=== PATIENT | male | born 1990 | race Caucasian/White ===

== ENCOUNTER 2017-01-26 11:29 | Inpatient (IN) | payer MEDICAID ==
[~2017-01-26] VITALS: Ht 165.1 cm; Wt 118.4 kg
[~2017-01-26 11:29] MED LIST: ADV100/50 INH; ALD25 PO; ALDACTONE25 MG PO; AMOXICILLIN500 MG PO; ASPIR 8181 MG PO; CARVEDILOL12.5 M1 PO; CARVEDILOL3.125 M1; CARVEDILOL3.125 M1 PO; CARVEDILOL6.25 M1 PO; CLINDAMYCIN HC300 MG PO; COR3 PO; ECO81 PO; FER300 PO; FERROUS SULFAT325 M2 PO; FUROSEMIDE40 MG PO; L40I PO; LAC PO; LASIX40 MG PO; LASIX80 MG PO; LEVOTHYROXIN0.025 M2 PO; LIPI20 PO; LISINOPRIL10 MG PO; LISINOPRIL5 MG PO; METOLAZONE2.5 M1 PO; METOPROLOL SUCC25 M1 PO; NORCO1 TA2 PO; PANTOPRAZOLE SO40 M1 PO; PER5 PO; PROVENTIL0.09 MG/A1 INH; ROBAXIN-750750 MG PO; SPIRONOLACTONE; SPIRONOLACTONE25 MG PO; SYN25 PO; SYNTHROID0.05 MG PO; TOP50 PO; Z5 PO; ZES10 PO; ZIT250 PO; ZITHROMAX Z-PA250 M2 PO
[2017-01-26 12:22] LABS: BASOPHIL % 0.3 % (0-2); PLATELET COUNT 278 x10^3mcL (130-400)
[2017-01-26 12:26] LABS: CARBON DIOXIDE 31.6 mmol/L (21-32); CHLORIDE SERUM 102 mmol/L (98-107); CREATININE SERUM 1.1 mg/dL (0.7-1.3); GFR1 > 60 mL/min; GLUCOSE SERUM 97 mg/dL (74-106); POTASSIUM SERUM 3.6 mmol/L (3.5-5.1); SODIUM SERUM 141 mmol/L (136-145)
[2017-01-26 12:31] LABS: ALBUMIN 3.6 g/dL (3.4-5.0); ALKALINE PHOSPHATASE 99 U/L (46-116); ALT/SGPT 23 U/L (16-63); AST/SGOT 22 U/L (15-37); BILIRUBIN TOTAL 1.97 mg/dL (0.20-1.00); RED CELL DISTRIBUTION WIDTH 23.1 % (11.5-14.5); TOTAL PROTEIN, SERUM 6.6 g/dL (6.4-8.2)
[2017-01-26 14:54] VITALS: BP 129/80
[2017-01-26 15:02] VITALS: Ht 165.1 cm; Wt 118.4 kg
[2017-01-26 15:27] VITALS: BP 125/92
[2017-01-26 16:49] LABS: CHOLESTEROL/HDL RATIO 3.1
[2017-01-26 16:54] LABS: FREE T4 1.65 ng/dL (0.76-1.46); T4(THYROXINE) 7.5 ug/dL (4.7-13.3)
[2017-01-26 16:59] LABS: T3 TOTAL 1.06 ng/mL
[2017-01-26 17:55] VITALS: BP 133/93
[2017-01-26 18:32] VITALS: BP 133/93
[2017-01-26 21:54] VITALS: BP 111/79
[2017-01-26 22:19] LABS: microscopic required? NO
[2017-01-26 22:26] LABS: urine erythrocyte NEGATIVE (NEGATIVE)
[2017-01-26 22:34] LABS: AMPHETAMINE QUAL UR NONE DETECTED (NEG <=1000)
[2017-01-27] VITALS (14 sets, daily range): BP systolic 100–127; BP diastolic 61–87
[2017-01-27 06:45] LABS: CALCIUM 8.2 mg/dL (8.5-10.1); CARBON DIOXIDE 25.1 mmol/L (21-32); CHLORIDE SERUM 102 mmol/L (98-107); CREATININE SERUM 1.2 mg/dL (0.7-1.3); GFR1 > 60 mL/min; GLUCOSE SERUM 97 mg/dL (74-106); PHOSPHOROUS 4.9 mg/dL (2.5-4.9); POTASSIUM SERUM 3.4 mmol/L (3.5-5.1); SODIUM SERUM 138 mmol/L (136-145)
[2017-01-27 07:26] LABS: BASOPHIL % 0.4 % (0-2); PLATELET COUNT 253 x10^3mcL (130-400); RED CELL DISTRIBUTION WIDTH 23.5 % (11.5-14.5)
[2017-01-27 16:57] LABS: APPEARANCE FLUID HAZY; SOURCE FLUID THORACENTESIS
[2017-01-27 16:58] LABS: COLOR FLUID YELLOW; LYMPHOCYTE FLUID 60 %; MONOCYTE FLUID 5 %; RBC FLUID 500 /cumm; WBC FLUID 25 /cumm
[2017-01-28 05:40] VITALS: BP 115/72
[2017-01-28 06:06] LABS: BASOPHIL % 0.4 % (0-2); PLATELET COUNT 247 x10^3mcL (130-400)
[2017-01-28 06:18] LABS: CALCIUM 8.3 mg/dL (8.5-10.1); CARBON DIOXIDE 28.2 mmol/L (21-32); CHLORIDE SERUM 101 mmol/L (98-107); CREATININE SERUM 1.1 mg/dL (0.7-1.3); GFR1 > 60 mL/min; GLUCOSE SERUM 81 mg/dL (74-106); MAGNESIUM 1.9 mg/dL (1.8-2.4); PHOSPHOROUS 4.5 mg/dL (2.5-4.9); SODIUM SERUM 136 mmol/L (136-145)
[2017-01-28 06:28] LABS: RED CELL DISTRIBUTION WIDTH 23.7 % (11.5-14.5); rbc morphology (normal/abnorm) ABNORMAL (NORMAL)
[2017-01-28 09:38] VITALS: BP 105/78
[2017-01-28 12:28] VITALS: BP 100/49
[2017-01-28 17:55] VITALS: BP 111/71
[2017-01-28 21:57] VITALS: BP 112/72
[2017-01-29] VITALS (11 sets, daily range): BP systolic 101–122; BP diastolic 55–79
[2017-01-29 07:14] LABS: PLATELET COUNT 262 x10^3mcL (130-400)
[2017-01-29 07:17] LABS: RED CELL DISTRIBUTION WIDTH 21.4 % (11.5-14.5)
[2017-01-29 07:18] LABS: CALCIUM 8.1 mg/dL (8.5-10.1); CHLORIDE SERUM 102 mmol/L (98-107); CREATININE SERUM 1.1 mg/dL (0.7-1.3); GFR1 > 60 mL/min; GLUCOSE SERUM 92 mg/dL (74-106); PHOSPHOROUS 5.1 mg/dL (2.5-4.9); POTASSIUM SERUM 4.1 mmol/L (3.5-5.1); SODIUM SERUM 135 mmol/L (136-145)
[2017-01-29] MEDS ORDERED: PER5 PO (14:19)
[2017-01-29] MEDS ORDERED: COL100 PO (14:21)
[2017-01-30 06:27] VITALS: BP 95/58
[2017-01-30 09:18] VITALS: BP 109/73
[2017-01-30] MEDS ORDERED: ALD50 PO (09:20)
[2017-01-30] MEDS ORDERED: ALDACTONE50 MG PO (09:22)
[2017-01-30 13:32] VITALS: BP 109/73
== END 2017-01-30 15:19 | disposition home or self-care (01) | DRG 194 ==
LOC: ED 11:29 → DU 13:50 → MU 13:50 → DU 14:40 → MU 01-30 06:02
PROVIDERS: Emergency Medicine; Family Medicine; ADMIT Family Medicine
PROC: 0W993ZZ Drainage of Right Pleural Cavity, Percutaneous Approach (ICD-10-PCS; principal; 2017-01-27)
PROC: 0W9930Z Drainage of Right Pleural Cavity with Drainage Device, Percutaneous Approach (ICD-10-PCS; 2017-01-29)
DX: I11.0 Hypertensive heart disease with heart failure (principal); N17.0 Acute kidney failure with tubular necrosis; J96.20 Acute and chronic respiratory failure, unspecified whether with hypoxia or hypercapnia; J18.9 Pneumonia, unspecified organism; J91.8 Pleural effusion in other conditions classified elsewhere; I50.43 Acute on chronic combined systolic (congestive) and diastolic (congestive) heart failure; T43.621S Poisoning by amphetamines, accidental (unintentional), sequela; I25.5 Ischemic cardiomyopathy; R73.03 Prediabetes; E87.6 Hypokalemia; J45.909 Unspecified asthma, uncomplicated; E03.9 Hypothyroidism, unspecified; F15.21 Other stimulant dependence, in remission; E66.01 Morbid (severe) obesity due to excess calories; Z68.42 Body mass index [BMI] 45.0-49.9, adult; Z79.82 Long term (current) use of aspirin; Z95.810 Presence of automatic (implantable) cardiac defibrillator
CPT/HCPCS: 32555; 80307; 83880; 84439; C1729; G0480; J0696; J1885; J1940; J2270; J2405; J7030; J7620; Q0092; Q0162; Q9967

== ENCOUNTER 2017-03-29 14:40 | Inpatient (IN) | payer MEDICAID ==
[~2017-03-29] VITALS: Ht 165.1 cm; Wt 110.4 kg
[~2017-03-29 14:40] MED LIST changes: +ALD50 PO; +ALDACTONE50 MG PO; +COL100 PO
[2017-03-29 17:19] LABS: BASOPHIL % 0.6 % (0-2); PLATELET COUNT 239 x10^3mcL (130-400)
[2017-03-29 17:20] LABS: RED CELL DISTRIBUTION WIDTH 19.8 % (11.5-14.5)
[2017-03-29 17:26] LABS: CALCIUM 8.7 mg/dL (8.5-10.1); CARBON DIOXIDE 26.7 mmol/L (21-32); CHLORIDE SERUM 102 mmol/L (98-107); CREATININE SERUM 1.1 mg/dL (0.7-1.3); GFR1 > 60 mL/min; GLUCOSE SERUM 103 mg/dL (74-106); POTASSIUM SERUM 3.6 mmol/L (3.5-5.1); SODIUM SERUM 137 mmol/L (136-145)
[2017-03-29 17:33] LABS: ALBUMIN 3.5 g/dL (3.4-5.0); ALKALINE PHOSPHATASE 85 U/L (46-116); ALT/SGPT 17 U/L (16-63); AST/SGOT 17 U/L (15-37); BILIRUBIN TOTAL 1.94 mg/dL (0.20-1.00); MAGNESIUM 1.9 mg/dL (1.8-2.4); TOTAL PROTEIN, SERUM 6.4 g/dL (6.4-8.2)
[2017-03-29] MEDS ORDERED: ATIVAN (17:55)
[2017-03-29] MEDS ORDERED: ZOFRAN ODT4 MG SL (17:55)
[2017-03-29 19:06] VITALS: BP 113/85
[2017-03-29 19:23] LABS: CHOLESTEROL/HDL RATIO 3.9; PHOSPHOROUS 3.4 mg/dL (2.5-4.9)
[2017-03-29 19:30] LABS: T3 TOTAL 0.63 ng/mL
[2017-03-29 19:33] LABS: FREE T4 1.32 ng/dL (0.76-1.46); FREE THYROXINE INDEX 2.4 ug/dL (1.4-4.5); T4(THYROXINE) 6.4 ug/dL (4.7-13.3)
[2017-03-29 21:36] VITALS: BP 129/82
[2017-03-29 23:42] VITALS: BP 12/82
[2017-03-30 00:15] LABS: microscopic required? NO
[2017-03-30 00:20] LABS: urine erythrocyte NEGATIVE (NEGATIVE)
[2017-03-30 00:25] LABS: AMPHETAMINE QUAL UR NONE DETECTED (NEG <=1000)
[2017-03-30 05:08] VITALS: BP 119/92
[2017-03-30 05:35] VITALS: BP 119/92
[2017-03-30 10:09] VITALS: BP 124/87
[2017-03-30 12:48] VITALS: BP 128/90
[2017-03-30 16:25] LABS: SOURCE FLUID THORACENTESIS
[2017-03-30 17:19] VITALS: BP 92/53
[2017-03-30 20:55] VITALS: BP 90/56
[2017-03-31 05:52] VITALS: BP 87/43
[2017-03-31 06:41] VITALS: BP 105/67
[2017-03-31 08:15] VITALS: BP 103/65
[2017-03-31 14:05] VITALS: BP 99/49
[2017-03-31 18:00] VITALS: BP 96/57
[2017-04-01 06:32] VITALS: BP 100/65
[2017-04-01 07:10] LABS: BASOPHIL % 0.9 % (0-2); PLATELET COUNT 243 x10^3mcL (130-400)
[2017-04-01 07:15] LABS: RED CELL DISTRIBUTION WIDTH 20.3 % (11.5-14.5); rbc morphology (normal/abnorm) ABNORMAL (NORMAL)
[2017-04-01 07:19] LABS: CALCIUM 8.5 mg/dL (8.5-10.1); CHLORIDE SERUM 98 mmol/L (98-107); CREATININE SERUM 1.1 mg/dL (0.7-1.3); GFR1 > 60 mL/min; GLUCOSE SERUM 90 mg/dL (74-106); MAGNESIUM 1.9 mg/dL (1.8-2.4); PHOSPHOROUS 3.7 mg/dL (2.5-4.9); POTASSIUM SERUM 4.5 mmol/L (3.5-5.1); SODIUM SERUM 133 mmol/L (136-145)
[2017-04-01 07:40] VITALS: BP 110/64
[2017-04-01] MEDS ORDERED: VITC PO (09:30)
[2017-04-01 13:49] VITALS: BP 110/64
[2017-04-01 14:16] VITALS: BP 108/56
== END 2017-04-01 14:30 | disposition hospice, home (50) | DRG 194 ==
LOC: ED 14:40 → DU 17:44
PROVIDERS: Emergency Medicine; Family Medicine; ADMIT Family Medicine
PROC: 0W993ZZ Drainage of Right Pleural Cavity, Percutaneous Approach (ICD-10-PCS; principal; 2017-03-30)
DX: I11.0 Hypertensive heart disease with heart failure (principal); J90 Pleural effusion, not elsewhere classified; I42.0 Dilated cardiomyopathy; E87.1 Hypo-osmolality and hyponatremia; I27.2 Other secondary pulmonary hypertension; F15.288 Other stimulant dependence with other stimulant-induced disorder; I50.43 Acute on chronic combined systolic (congestive) and diastolic (congestive) heart failure; Z68.41 Body mass index [BMI] 40.0-44.9, adult; I08.1 Rheumatic disorders of both mitral and tricuspid valves; R73.03 Prediabetes; E78.5 Hyperlipidemia, unspecified; E03.9 Hypothyroidism, unspecified; D50.9 Iron deficiency anemia, unspecified; F12.10 Cannabis abuse, uncomplicated; Z79.82 Long term (current) use of aspirin; Z99.81 Dependence on supplemental oxygen; Z95.810 Presence of automatic (implantable) cardiac defibrillator; Z22.322 Carrier or suspected carrier of Methicillin resistant Staphylococcus aureus
CPT/HCPCS: 32555; 83880; 84439; C1729; J1885; J1940; J2001; J2270; J2405; J7030; J7613; J7620; J7644; Q0092

== ENCOUNTER 2017-04-05 21:13 | Inpatient (IN) | payer MEDICAID ==
[~2017-04-05] VITALS: Ht 165.1 cm; Wt 113.9 kg
[~2017-04-05 21:13] MED LIST changes: +ATIVAN; +VITC PO; +ZOFRAN ODT4 MG SL
[2017-04-05 22:09] LABS: BASOPHIL % 1.1 % (0-2); PLATELET COUNT 338 x10^3mcL (130-400)
[2017-04-05 22:11] LABS: RED CELL DISTRIBUTION WIDTH 20.6 % (11.5-14.5)
[2017-04-05 22:18] LABS: CALCIUM 9.2 mg/dL (8.5-10.1); CARBON DIOXIDE 25.3 mmol/L (21-32); CREATININE SERUM 1.7 mg/dL (0.7-1.3)
[2017-04-05 22:23] LABS: ALBUMIN 3.7 g/dL (3.4-5.0); BILIRUBIN TOTAL 4.7 mg/dL (0.20-1.00); TOTAL PROTEIN, SERUM 6.7 g/dL (6.4-8.2)
[2017-04-06 00:59] VITALS: BP 114/77
[2017-04-06 02:17] LABS: MAGNESIUM 2.1 mg/dL (1.8-2.4); PHOSPHOROUS 4.3 mg/dL (2.5-4.9)
[2017-04-06 02:20] LABS: T3 TOTAL 0.6 ng/mL
[2017-04-06 02:27] LABS: FREE T4 1.37 ng/dL (0.76-1.46); FREE THYROXINE INDEX 2.1 ug/dL (1.4-4.5)
[2017-04-06 05:11] LABS: PLATELET COUNT 287 x10^3mcL (130-400); RED CELL DISTRIBUTION WIDTH 21.1 % (11.5-14.5)
[2017-04-06 05:21] LABS: CALCIUM 8.8 mg/dL (8.5-10.1); CARBON DIOXIDE 24.4 mmol/L (21-32); CREATININE SERUM 1.6 mg/dL (0.7-1.3); POTASSIUM SERUM 4.2 mmol/L (3.5-5.1)
[2017-04-06 05:26] LABS: rbc morphology (normal/abnorm) ABNORMAL (NORMAL)
[2017-04-06 05:27] LABS: ovalocyte/elliptocyte 1+
[2017-04-06 09:03] LABS: microscopic required? NO
[2017-04-06 09:24] LABS: UA SPECIFIC GRAVITY 1.025 (1.005-1.035); urine erythrocyte NEGATIVE (NEGATIVE)
[2017-04-06 09:49] LABS: AMPHETAMINE QUAL UR POSITIVE (NEG <=1000)
[2017-04-06 10:31] VITALS: BP 103/75
[2017-04-06 10:53] VITALS: BP 89/60
[2017-04-06 12:51] VITALS: BP 98/71
[2017-04-06 16:17] LABS: SITE FLUID RIGHT; SOURCE FLUID THORACENTESIS
[2017-04-06 17:09] VITALS: BP 93/45
[2017-04-06 21:19] VITALS: BP 83/53
[2017-04-07] VITALS (7 sets, daily range): BP systolic 91–102; BP diastolic 59–69
[2017-04-08 06:12] VITALS: BP 98/59
[2017-04-08 06:53] LABS: BASOPHIL % 0.5 % (0-2); PLATELET COUNT 343 x10^3mcL (130-400)
[2017-04-08 06:54] LABS: RED CELL DISTRIBUTION WIDTH 21.5 % (11.5-14.5)
[2017-04-08 07:22] LABS: CALCIUM 8.6 mg/dL (8.5-10.1); CARBON DIOXIDE 28.6 mmol/L (21-32); CHLORIDE SERUM 92 mmol/L (98-107); CREATININE SERUM 1.5 mg/dL (0.7-1.3); GFR1 > 60 mL/min; GLUCOSE SERUM 87 mg/dL (74-106); POTASSIUM SERUM 4.8 mmol/L (3.5-5.1); SODIUM SERUM 129 mmol/L (136-145)
[2017-04-08 09:48] VITALS: BP 103/64
[2017-04-08 14:50] VITALS: BP 100/64
[2017-04-08 17:27] VITALS: BP 102/69
[2017-04-08 20:57] VITALS: BP 104/64
[2017-04-09 05:22] VITALS: BP 99/65
[2017-04-09 06:06] LABS: BASOPHIL % 0.5 % (0-2); PLATELET COUNT 326 x10^3mcL (130-400)
[2017-04-09 06:18] LABS: CALCIUM 8.3 mg/dL (8.5-10.1); CARBON DIOXIDE 25.4 mmol/L (21-32); CHLORIDE SERUM 93 mmol/L (98-107); CREATININE SERUM 1.3 mg/dL (0.7-1.3); GFR1 > 60 mL/min; GLUCOSE SERUM 96 mg/dL (74-106); POTASSIUM SERUM 4.7 mmol/L (3.5-5.1); SODIUM SERUM 127 mmol/L (136-145)
[2017-04-09 06:39] LABS: RED CELL DISTRIBUTION WIDTH 21.6 % (11.5-14.5)
[2017-04-09 08:34] LABS: tear drop cell (dacryocyte) 1+
[2017-04-09 08:35] LABS: burr cell (echinocyte) 1+; rbc morphology (normal/abnorm) ABNORMAL (NORMAL)
[2017-04-09 10:35] VITALS: BP 90/51
[2017-04-09 13:52] VITALS: BP 93/59
[2017-04-09] MEDS ORDERED: LAC PO (17:32)
[2017-04-09] MEDS ORDERED: LEVAQUIN750 MG PO (17:32)
[2017-04-09] MEDS ORDERED: CLINDAMYCIN HC300 MG PO (17:33)
[2017-04-09 17:48] VITALS: BP 93/59
== END 2017-04-09 19:35 | disposition hospice, home (50) | DRG 720 ==
LOC: ED 21:13 → DU 04-06 08:30 → ED 04-06 09:10 → DU 04-06 10:07
PROVIDERS: Emergency Medicine; ADMIT Family Medicine
PROC: 0W993ZZ Drainage of Right Pleural Cavity, Percutaneous Approach (ICD-10-PCS; principal; 2017-04-07)
PROC: 0W9930Z Drainage of Right Pleural Cavity with Drainage Device, Percutaneous Approach (ICD-10-PCS; 2017-04-08)
DX: A41.9 Sepsis, unspecified organism (principal); I50.43 Acute on chronic combined systolic (congestive) and diastolic (congestive) heart failure; J91.8 Pleural effusion in other conditions classified elsewhere; J18.9 Pneumonia, unspecified organism; I42.0 Dilated cardiomyopathy; I11.0 Hypertensive heart disease with heart failure; Z68.41 Body mass index [BMI] 40.0-44.9, adult; Z99.81 Dependence on supplemental oxygen; R65.20 Severe sepsis without septic shock; I36.1 Nonrheumatic tricuspid (valve) insufficiency; I34.0 Nonrheumatic mitral (valve) insufficiency; R73.03 Prediabetes; E78.5 Hyperlipidemia, unspecified; E03.9 Hypothyroidism, unspecified; D50.9 Iron deficiency anemia, unspecified; F12.10 Cannabis abuse, uncomplicated; F15.10 Other stimulant abuse, uncomplicated; Z95.810 Presence of automatic (implantable) cardiac defibrillator; Z79.82 Long term (current) use of aspirin
CPT/HCPCS: 32405; 32555; 83880; 84439; 88344; 97116-GP; 97530-GP; C1729; J1885; J1940; J1956; J2001; J2250; J2270; J2405; J2543; J3010; J7050; J7620; Q0092

== ENCOUNTER 2017-04-16 13:47 | Emergency (ER) | payer MEDICAID ==
[~2017-04-16 13:47] MED LIST changes: +LEVAQUIN750 MG PO
[2017-04-16 14:58] LABS: CALCIUM 8.7 mg/dL (8.5-10.1); CARBON DIOXIDE 26.9 mmol/L (21-32); CHLORIDE SERUM 97 mmol/L (98-107); CREATININE SERUM 0.9 mg/dL (0.7-1.3); GFR1 > 60 mL/min; GLUCOSE SERUM 95 mg/dL (74-106); PLATELET COUNT 410 x10^3mcL (130-400); POTASSIUM SERUM 3.7 mmol/L (3.5-5.1); RED CELL DISTRIBUTION WIDTH 22.2 % (11.5-14.5); SODIUM SERUM 134 mmol/L (136-145)
[2017-04-16 15:03] LABS: ALKALINE PHOSPHATASE 144 U/L (46-116); ALT/SGPT 24 U/L (16-63); AST/SGOT 22 U/L (15-37); BILIRUBIN TOTAL 2.22 mg/dL (0.20-1.00); TOTAL PROTEIN, SERUM 6.2 g/dL (6.4-8.2)
[2017-04-16 15:04] LABS: ALBUMIN 2.8 g/dL (3.4-5.0)
[2017-04-16 15:07] LABS: microscopic required? NO
[2017-04-16 15:35] LABS: UA SPECIFIC GRAVITY 1.025 (1.005-1.035); urine erythrocyte NEGATIVE (NEGATIVE)
[2017-04-16 16:26] VITALS: BP 97/57
== END 2017-04-16 16:26 | disposition home or self-care (01) ==
LOC: ED 13:47
PROVIDERS: Emergency Medicine
DX: R10.11 Right upper quadrant pain (principal); R11.2 Nausea with vomiting, unspecified; R19.7 Diarrhea, unspecified; I10 Essential (primary) hypertension; E03.9 Hypothyroidism, unspecified; E78.5 Hyperlipidemia, unspecified; I42.9 Cardiomyopathy, unspecified
CPT/HCPCS: 83880; J1885; J2765; Q0092

== ENCOUNTER 2017-04-26 15:59 | Emergency (ER) | payer MEDICAID ==
[~2017-04-26] VITALS: Ht 167.6 cm; Wt 107.6 kg
[2017-04-26 17:02] LABS: BASOPHIL % 1.6 % (0-2); PLATELET COUNT 312 x10^3mcL (130-400)
[2017-04-26 17:18] LABS: RED CELL DISTRIBUTION WIDTH 26.8 % (11.5-14.5)
[2017-04-26 17:22] LABS: CALCIUM 9.1 mg/dL (8.5-10.1); CARBON DIOXIDE 18.5 mmol/L (21-32); CHLORIDE SERUM 101 mmol/L (98-107); CREATININE SERUM 1.4 mg/dL (0.7-1.3); GFR1 > 60 mL/min; GLUCOSE SERUM 115 mg/dL (74-106); POTASSIUM SERUM 4.1 mmol/L (3.5-5.1); SODIUM SERUM 135 mmol/L (136-145)
[2017-04-26 17:26] LABS: rbc morphology (normal/abnorm) ABNORMAL (NORMAL)
[2017-04-26 17:31] LABS: ALKALINE PHOSPHATASE 120 U/L (46-116); ALT/SGPT 14 U/L (16-63); AST/SGOT 16 U/L (15-37); BILIRUBIN TOTAL 1.77 mg/dL (0.20-1.00); T4(THYROXINE) 6.8 ug/dL (4.7-13.3); TOTAL PROTEIN, SERUM 6.3 g/dL (6.4-8.2)
[2017-04-26 17:32] LABS: ALBUMIN 3.1 g/dL (3.4-5.0)
[2017-04-26 19:02] VITALS: BP 107/71
== END 2017-04-26 19:02 | disposition home or self-care (01) ==
LOC: ED 15:59
PROVIDERS: Emergency Medicine
DX: T85.9XXA Unspecified complication of internal prosthetic device, implant and graft, initial encounter (principal); R07.81 Pleurodynia; I42.9 Cardiomyopathy, unspecified; E03.9 Hypothyroidism, unspecified; E78.00 Pure hypercholesterolemia, unspecified; E66.9 Obesity, unspecified; E46 Unspecified protein-calorie malnutrition; I13.0 Hypertensive heart and chronic kidney disease with heart failure and stage 1 through stage 4 chronic kidney disease, or unspecified chronic kidney disease; N18.3 Chronic kidney disease, stage 3 (moderate); I50.40 Unspecified combined systolic (congestive) and diastolic (congestive) heart failure; Y92.89 Other specified places as the place of occurrence of the external cause; Z98.890 Other specified postprocedural states
CPT/HCPCS: 36415; 83880; Q0092

== ENCOUNTER 2017-06-23 21:57 | Inpatient (IN) | payer MEDICAID ==
[~2017-06-23] VITALS: Ht 167.6 cm; Wt 106.7 kg
[2017-06-23 22:56] LABS: BASOPHIL % 0.5 % (0-2); PLATELET COUNT 222 x10^3mcL (130-400)
[2017-06-23 23:02] LABS: RED CELL DISTRIBUTION WIDTH 20.6 % (11.5-14.5)
[2017-06-23 23:03] LABS: CALCIUM 8.9 mg/dL (8.5-10.1); CARBON DIOXIDE 27.8 mmol/L (21-32); CHLORIDE SERUM 100 mmol/L (98-107); CREATININE SERUM 0.9 mg/dL (0.7-1.3); GFR1 > 60 mL/min; GLUCOSE SERUM 101 mg/dL (74-106); POTASSIUM SERUM 3.9 mmol/L (3.5-5.1); SODIUM SERUM 137 mmol/L (136-145)
[2017-06-23 23:25] LABS: ALKALINE PHOSPHATASE 174 U/L (46-116); ALT/SGPT 25 U/L (16-63); AST/SGOT 21 U/L (15-37); BILIRUBIN TOTAL 1.89 mg/dL (0.20-1.00); TOTAL PROTEIN, SERUM 7.1 g/dL (6.4-8.2)
[2017-06-23 23:26] LABS: ALBUMIN 3.1 g/dL (3.4-5.0)
[2017-06-23 23:27] LABS: CK-MB < 0.5 ng/mL (0-3.6); CREATINE KINASE 21 U/L (39-308)
[2017-06-23] MEDS ORDERED: CARVEDILOL6.25 M1 PO (23:56)
[2017-06-24] VITALS (7 sets, daily range): BP systolic 101–114; BP diastolic 58–68
[2017-06-24] MEDS ORDERED: LEVOTHYROXIN0.025 M2 PO (01:35)
[2017-06-24] MEDS ORDERED: ASPIR 8181 MG PO (01:37)
[2017-06-24 02:43] LABS: MAGNESIUM 2.3 mg/dL (1.8-2.4); PHOSPHOROUS 3.3 mg/dL (2.5-4.9)
[2017-06-24 02:46] LABS: CHOLESTEROL/HDL RATIO 2.3
[2017-06-24 02:53] LABS: FREE T4 1.17 ng/dL (0.76-1.46); FREE THYROXINE INDEX 2.6 ug/dL (1.4-4.5); T4(THYROXINE) 6.9 ug/dL (4.7-13.3)
[2017-06-24 03:06] LABS: T3 TOTAL 0.79 ng/mL
[2017-06-24 03:54] LABS: microscopic required? NO
[2017-06-24 04:07] LABS: urine erythrocyte NEGATIVE (NEGATIVE)
[2017-06-24 04:31] LABS: AMPHETAMINE QUAL UR NONE DETECTED (NEG <=1000)
[2017-06-24 06:27] LABS: BASOPHIL % 0.1 % (0-2); PLATELET COUNT 192 x10^3mcL (130-400)
[2017-06-24 06:41] LABS: RED CELL DISTRIBUTION WIDTH 20.4 % (11.5-14.5); rbc morphology (normal/abnorm) ABNORMAL (NORMAL)
[2017-06-24 06:45] LABS: CALCIUM 8.6 mg/dL (8.5-10.1); CARBON DIOXIDE 30.4 mmol/L (21-32); CHLORIDE SERUM 103 mmol/L (98-107); CREATININE SERUM 1.1 mg/dL (0.7-1.3); GFR1 > 60 mL/min; GLUCOSE SERUM 96 mg/dL (74-106); POTASSIUM SERUM 3.8 mmol/L (3.5-5.1); SODIUM SERUM 139 mmol/L (136-145)
[2017-06-25 10:00] VITALS: BP 95/62
[2017-06-25 13:54] VITALS: BP 119/77
[2017-06-25 18:08] VITALS: BP 120/71
[2017-06-25 20:26] VITALS: BP 102/66
[2017-06-26 05:55] VITALS: BP 108/74
[2017-06-26 06:06] LABS: BASOPHIL % 0.3 % (0-2); PLATELET COUNT 236 x10^3mcL (130-400)
[2017-06-26 06:12] LABS: CALCIUM 8.6 mg/dL (8.5-10.1); CHLORIDE SERUM 99 mmol/L (98-107); CREATININE SERUM 1.1 mg/dL (0.7-1.3); GFR1 > 60 mL/min; GLUCOSE SERUM 86 mg/dL (74-106); POTASSIUM SERUM 3.9 mmol/L (3.5-5.1); SODIUM SERUM 129 mmol/L (136-145)
[2017-06-26 06:34] LABS: RED CELL DISTRIBUTION WIDTH 19.8 % (11.5-14.5)
[2017-06-26] MEDS ORDERED: LEVAQUIN750 MG PO (12:17)
[2017-06-26] MEDS ORDERED: LEVOTHYROXIN0.025 M2 PO (12:50)
[2017-06-26 13:00] VITALS: BP 110/64
[2017-06-26 13:44] VITALS: BP 110/64
[2017-06-26] MEDS ORDERED: BACTROBAN21 (14:08)
[2017-06-26] MEDS ORDERED: HIBICLENS118 ML TOP (14:13)
[2017-06-26] MEDS ORDERED: BACO TOP (15:14)
[2017-06-30 14:31] VITALS: Ht 167.6 cm; Wt 106.7 kg
== END 2017-06-26 16:15 | disposition home or self-care (01) | DRG 194 ==
LOC: ED 21:57 → DU 23:35
PROVIDERS: Emergency Medicine; ADMIT Family Medicine
DX: I11.0 Hypertensive heart disease with heart failure (principal); J18.9 Pneumonia, unspecified organism; I50.43 Acute on chronic combined systolic (congestive) and diastolic (congestive) heart failure; E44.1 Mild protein-calorie malnutrition; J45.909 Unspecified asthma, uncomplicated; E03.9 Hypothyroidism, unspecified; E80.6 Other disorders of bilirubin metabolism; E66.9 Obesity, unspecified; Z79.82 Long term (current) use of aspirin; Z68.37 Body mass index [BMI] 37.0-37.9, adult; Z95.810 Presence of automatic (implantable) cardiac defibrillator; I25.10 Atherosclerotic heart disease of native coronary artery without angina pectoris
CPT/HCPCS: 83880; 84439; J1940; J1956; J2270; J7030; J7620; Q0092

== ENCOUNTER 2017-07-27 18:57 | Inpatient (IN) | payer MEDICAID ==
[~2017-07-27] VITALS: Ht 170.2 cm; Wt 110.2 kg
[~2017-07-27 18:57] MED LIST changes: +BACO TOP; +BACTROBAN21; +HIBICLENS118 ML TOP
[2017-07-27 21:08] LABS: BASOPHIL % 0.6 % (0-2); PLATELET COUNT 226 x10^3mcL (130-400)
[2017-07-27 21:10] LABS: RED CELL DISTRIBUTION WIDTH 16.5 % (11.5-14.5)
[2017-07-27 21:15] LABS: CALCIUM 9.3 mg/dL (8.5-10.1); CARBON DIOXIDE 28.2 mmol/L (21-32); CHLORIDE SERUM 103 mmol/L (98-107); GFR1 > 60 mL/min; GLUCOSE SERUM 99 mg/dL (74-106); POTASSIUM SERUM 3.1 mmol/L (3.5-5.1); SODIUM SERUM 141 mmol/L (136-145)
[2017-07-27 21:19] LABS: ALKALINE PHOSPHATASE 104 U/L (46-116); ALT/SGPT 20 U/L (16-63); AMYLASE 27 U/L (25-115); AST/SGOT 20 U/L (15-37); LIPASE 58 IU/L (73-393); TOTAL PROTEIN, SERUM 7.4 g/dL (6.4-8.2)
[2017-07-27] MEDS ORDERED: LIPI20 PO (22:17)
[2017-07-27] MEDS ORDERED: ZESTRIL5 MG PO (22:18)
[2017-07-27] MEDS ORDERED: COUMADIN5 MG PO (22:18)
[2017-07-27] MEDS ORDERED: DIGOXIN0.125 M1 GT (22:18)
[2017-07-27] MEDS ORDERED: ALDACTONE25 MG PO (22:18)
[2017-07-27] MEDS ORDERED: NITROGLYCERIN0.4 MG (22:18)
[2017-07-27] MEDS ORDERED: NOVAPLUS V0.09 MG/Ac INH (22:20)
[2017-07-28] VITALS (8 sets, daily range): BP systolic 87–119; BP diastolic 63–87
[2017-07-28 06:51] LABS: BASOPHIL % 0.4 % (0-2); PLATELET COUNT 212 x10^3mcL (130-400)
[2017-07-28 06:56] LABS: CALCIUM 8.9 mg/dL (8.5-10.1); CARBON DIOXIDE 26.5 mmol/L (21-32); CHLORIDE SERUM 106 mmol/L (98-107); CREATININE SERUM 1.1 mg/dL (0.7-1.3); GFR1 > 60 mL/min; GLUCOSE SERUM 88 mg/dL (74-106); POTASSIUM SERUM 3.8 mmol/L (3.5-5.1); SODIUM SERUM 141 mmol/L (136-145)
[2017-07-29 05:33] VITALS: BP 99/63
[2017-07-29 06:19] LABS: BASOPHIL % 0.5 % (0-2); PLATELET COUNT 200 x10^3mcL (130-400)
[2017-07-29 06:31] LABS: CALCIUM 8.6 mg/dL (8.5-10.1); CARBON DIOXIDE 23.2 mmol/L (21-32); CHLORIDE SERUM 105 mmol/L (98-107); CREATININE SERUM 1.1 mg/dL (0.7-1.3); GFR1 > 60 mL/min; GLUCOSE SERUM 80 mg/dL (74-106); MAGNESIUM 2.1 mg/dL (1.8-2.4); PHOSPHOROUS 4.5 mg/dL (2.5-4.9); POTASSIUM SERUM 4.5 mmol/L (3.5-5.1); SODIUM SERUM 138 mmol/L (136-145)
[2017-07-29 06:52] LABS: RED CELL DISTRIBUTION WIDTH 17.2 % (11.5-14.5)
[2017-07-29 09:30] VITALS: BP 116/82
[2017-07-29 14:11] VITALS: BP 122/71
[2017-07-29 17:15] VITALS: BP 109/68
[2017-07-29 22:08] VITALS: BP 117/77
[2017-07-30 06:00] VITALS: BP 98/71
[2017-07-30 06:00] LABS: BASOPHIL % 0.2 % (0-2); PLATELET COUNT 175 x10^3mcL (130-400)
[2017-07-30 06:23] LABS: CALCIUM 8.2 mg/dL (8.5-10.1); CARBON DIOXIDE 21.3 mmol/L (21-32); CHLORIDE SERUM 104 mmol/L (98-107); GFR1 > 60 mL/min; GLUCOSE SERUM 85 mg/dL (74-106); SODIUM SERUM 136 mmol/L (136-145)
[2017-07-30] MEDS ORDERED: LEVAQUIN750 MG PO (08:11)
[2017-07-30] MEDS ORDERED: LAC PO (08:11)
[2017-07-30] MEDS ORDERED: NORCO1 TA2 PO (09:31)
[2017-07-30 10:50] VITALS: BP 121/86
[2017-07-30 14:55] VITALS: BP 121/86
[2017-07-30 15:10] VITALS: BP 116/60
== END 2017-07-30 17:24 | disposition home or self-care (01) | DRG 139 ==
LOC: ED 18:57 → DU 21:59
PROVIDERS: Emergency Medicine; Family Medicine; ADMIT Family Medicine
DX: J18.9 Pneumonia, unspecified organism (principal); I50.43 Acute on chronic combined systolic (congestive) and diastolic (congestive) heart failure; I42.0 Dilated cardiomyopathy; R18.8 Other ascites; I11.0 Hypertensive heart disease with heart failure; K74.60 Unspecified cirrhosis of liver; R73.03 Prediabetes; E87.6 Hypokalemia; E78.5 Hyperlipidemia, unspecified; S32.000S Wedge compression fracture of unspecified lumbar vertebra, sequela; M54.5 Low back pain; G89.29 Other chronic pain; F12.10 Cannabis abuse, uncomplicated; I25.2 Old myocardial infarction; Z95.810 Presence of automatic (implantable) cardiac defibrillator; Z87.01 Personal history of pneumonia (recurrent); Z79.01 Long term (current) use of anticoagulants; Z79.82 Long term (current) use of aspirin; V89.2XXS Person injured in unspecified motor-vehicle accident, traffic, sequela
CPT/HCPCS: 83880; J1885; J1956; J2270; J2405; J7030; Q0092

== ENCOUNTER 2017-08-31 21:42 | Emergency (ER) | payer MEDICAID ==
[~2017-08-31 21:42] MED LIST changes: +COUMADIN5 MG PO; +DIGOXIN0.125 M1 GT; +NITROGLYCERIN0.4 MG; +NOVAPLUS V0.09 MG/Ac INH; +ZESTRIL5 MG PO
[2017-09-01 01:08] LABS: BASOPHIL % 0.4 % (0-2); PLATELET COUNT 208 x10^3mcL (130-400)
[2017-09-01 01:09] LABS: RED CELL DISTRIBUTION WIDTH 16.9 % (11.5-14.5)
[2017-09-01 01:14] LABS: CALCIUM 8.7 mg/dL (8.5-10.1); CARBON DIOXIDE 28.5 mmol/L (21-32); CHLORIDE SERUM 105 mmol/L (98-107); GFR1 > 60 mL/min; GLUCOSE SERUM 88 mg/dL (74-106); POTASSIUM SERUM 3.2 mmol/L (3.5-5.1); SODIUM SERUM 139 mmol/L (136-145)
[2017-09-01 01:19] LABS: ALBUMIN 3.6 g/dL (3.4-5.0); ALKALINE PHOSPHATASE 109 U/L (46-116); ALT/SGPT 17 U/L (16-63); AST/SGOT 19 U/L (15-37); BILIRUBIN TOTAL 2.29 mg/dL (0.20-1.00); TOTAL PROTEIN, SERUM 6.8 g/dL (6.4-8.2)
[2017-09-01 04:17] VITALS: BP 135/90
== END 2017-09-01 04:17 | disposition home or self-care (01) ==
LOC: ED 21:42
PROVIDERS: Emergency Medicine
DX: I11.0 Hypertensive heart disease with heart failure (principal); I50.9 Heart failure, unspecified; J45.909 Unspecified asthma, uncomplicated
CPT/HCPCS: 36415; Q0092

== ENCOUNTER 2017-09-13 | Inpatient (IN) | payer MEDICAID ==
[~2017-09-13] VITALS: Ht 170.2 cm; Wt 129.2 kg
[2017-09-13] VITALS (7 sets, daily range): BP systolic 95–125; BP diastolic 62–87
--- NOTE | 2017-09-13 01:06 | NUR ---
MSE COMPLETED BY DR MORENO
[2017-09-13 01:20] LABS: BASOPHIL % 0.3 % (0-2); CALCIUM 8.9 mg/dL (8.5-10.1); CARBON DIOXIDE 25.2 mmol/L (21-32); CHLORIDE SERUM 102 mmol/L (98-107); CREATININE SERUM 1.3 mg/dL (0.7-1.3); GFR1 > 60 mL/min; GLUCOSE SERUM 88 mg/dL (74-106); PLATELET COUNT 272 x10^3mcL (130-400); POTASSIUM SERUM 3.3 mmol/L (3.5-5.1); SODIUM SERUM 137 mmol/L (136-145)
[2017-09-13 01:24] LABS: ALBUMIN 3.8 g/dL (3.4-5.0); ALKALINE PHOSPHATASE 95 U/L (46-116); ALT/SGPT 13 U/L (16-63); AST/SGOT 17 U/L (15-37); BILIRUBIN TOTAL 4.35 mg/dL (0.20-1.00); TOTAL PROTEIN, SERUM 6.7 g/dL (6.4-8.2)
[2017-09-13 01:32] LABS: RED CELL DISTRIBUTION WIDTH 16.9 % (11.5-14.5)
--- NOTE | 2017-09-13 01:32 | NUR ---
PATIENT SEEN RESTING. HAS NO YET VOID
--- NOTE | 2017-09-13 03:21 | NUR ---
PATIENT ARRIVED TO UNIT VIA [facility] FROM ED ACCOMPANIED BY ED NURSES. PATIENT A/OX4 ABLE TO VERBALIZE NEEDS. ALL MEDICAL HISTORY OBTAINED FROM PATIENT DIRECTLY. IV SITE TO LAC. NO FLUIDS ORDERED AT THIS TIME. PATIENT VERBALIZED 10/10 PAIN TO BL LEGS. REDNESS AND SWELLING TO BLE UP TO BOTH KNEES. REDNESS ALSO NOTED TO RIGHT SIDE FLANK. CALL LIGHT WITHIN REACH AND WILL CONTACT DR. LOTT REGARDING NEW ORDERS
--- NOTE | 2017-09-13 03:24 | NUR ---
PATIENT HAS NECK VEIN DISTENTION AT REST, DYSPNEA ON EXERTION AND AT REST. REPORT WAS GIVEN TO EVAN AND THE PATIENT WAS TRANSPORTED TO ROOM 201.
[2017-09-13 04:20] LABS: MAGNESIUM 2.2 mg/dL (1.8-2.4); PHOSPHOROUS 3.7 mg/dL (2.5-4.9)
--- NOTE | 2017-09-13 04:25 | NUR ---
PAIN MEDICATION ADMINISTERED FOR PAIN 10/10 TO BL LEGS.
[2017-09-13 04:31] LABS: FREE T4 1.47 ng/dL (0.76-1.46); FREE THYROXINE INDEX 2.5 ug/dL (1.4-4.5); T4(THYROXINE) 6.3 ug/dL (4.7-13.3)
[2017-09-13 04:55] LABS: CHOLESTEROL/HDL RATIO 3.2
--- NOTE | 2017-09-13 06:48 | NUR ---
PATIENT QUIETLY RESTING IN BED AT THIS TIME. NO S/SX OF DISTRESS NOTED. ICE PACKS APPLIED TO BL LEGS. CALL LIGHT WITHIN REACH. PATIENT DENIES ANY SOB OR CHEST PAIN AT THIS TIME.
--- NOTE | 2017-09-13 07:12 | NUR ---
TALKING ON PHONE, NO DISTRESS NOTED. TELE 8. IVF NS @ 10 TO LAC WNL. BLE RED AND MARKED. CALL LIGHT WITHIN REACH.
--- NOTE | 2017-09-13 07:28 | NUR ---
CARE ENDORSED TO SERG
--- NOTE | 2017-09-13 07:28 | NUR ---
INFLUENZA VACCINE GIVEN TO LEFT ARM IM. SEE EMAR. PATIENT TOLERATED WELL.
[2017-09-13 08:00] LABS: microscopic required? YES; urine erythrocyte NEGATIVE (NEGATIVE)
[2017-09-13 08:18] LABS: AMPHETAMINE QUAL UR POSITIVE (NEG <=1000)
--- NOTE | 2017-09-13 08:27 | NUR ---
EATING BREAKFAST. REQUESTED AND RECEIVED PAIN MEDICATION. TELE 8. REDNESS TO BLE AND RIGHT BREAST AROUND TO RIGHT FLANK. CALL LIGHT WITHIN REACH.
--- NOTE | 2017-09-13 08:58 | NUR ---
PHARMACIST FOLLOWING UP WITH RESIDENT CONCERNING ORDER FOR COUMADIN.
--- NOTE | 2017-09-13 10:03 | NUR ---
SPOKE WITH DR NICHOLS AND MADE AWARE PHARMACIST NEEDS TO SPEAK WITH HIM CONCERNING WARFARIN ORDER PLACED DURING INSIDE WIREMAN.
--- NOTE | 2017-09-13 10:24 | NUR ---
CALLED FOR NURSE, NURSE INTO ROOM, IGNORED NURSE WHILE TALKING ON PHONE, WHEN ASKED IF HE NEEDED NURSE, REPORTS HIS LEFT SIDE OF FACE JUST SUDDENLY WENT NUMB, NO DROOP NOTED, WANTED TO CONTINUE PHONE CONVERSATION INSTEAD OF FURTHER NEURO CHECKS. WILL CONTINUE TO MONITOR. DR SANTIAGO MADE AWARE.
--- NOTE | 2017-09-13 12:07 | NUR ---
REPORTS FACIAL NUMBNESS IS GONE.
--- NOTE | 2017-09-13 12:50 | NUR ---
RT GIVING RX. LUNCH DELIVERED.
--- NOTE | 2017-09-13 13:59 | NUR ---
DR BERG IN TO SEE PATIENT. TO BE ON FLUID RESTRICTIONS. INFORMED PATIENT OF FLUID RESTRICTIONS, PATIENT REPORTS HE USUALLY IS ON 1000ML FLUID RESTRICTIONS. HAS BEEN ASKING FOR JUICES AND SODAS THROUGHOUT SHIFT.
--- NOTE | 2017-09-13 15:41 | NUR ---
TALKING ON PHONE. DR NICHOLS IN TO SEE PATIENT. NO DISTRESS NOTED.
[2017-09-13 16:00] LABS: T3 TOTAL 0.77 ng/mL
--- NOTE | 2017-09-13 17:55 | NUR ---
UP TO BATHROOM.
--- NOTE | 2017-09-13 18:45 | NUR ---
MEDICATED WITH DILAUDID 2MG PO FOR 10/10 PAIN. WATCHING TV, NO DISTRESS NOTED.
--- NOTE | 2017-09-13 19:15 | NUR ---
PT A/O X4, SITTING UP AND EATING DINNER AT THIS TIME. TELE #8, ST AT 102, DENIES CHEST PAIN. PACEMAKER. PULSES WEAK TO BLE, PITTING EDEMA NOTED TO BLE. LUNG SOUNDS DIMINSHED TO SANDEE BASES, ON RA, DENIES SOB. ABD SOFT AND NONDISTENDED, BOWEL TONES ACTIVE, DENIES N/V. VOIDS ADEQUATELY VIA URINAL. PT ON STRICT I/Os AND FLUID RESTRICTIONS. GENERALIZED WEAKNESS. REDNESS NOTED TO BLE; REDNESS NOTED TO RIGHT BREAST AND FLANK. PT DENIES PAIN AT THIS TIME. IVF INFUSING TO LAC. BED IN LOWEST, SIDE RAILS UP X2, CALL LIGHT WITHIN REACH. WILL CONTINUE TO MONITOR.
--- NOTE | 2017-09-13 22:16 | NUR ---
PT COMPLAINING OF NAUSEA. ADMINISTERED ZOFRAN ORDERED. NO ACTIVE VOMITING AT THIS TIME. WILL CONTINUE TO MONITOR.
--- NOTE | 2017-09-14 01:30 | NUR ---
PT ASLEEP AT THIS TIME. BREATHING IS EVEN AND UNLABORED, NO RESP DISTRESS NOTED. NO SIGNS OF PAIN OBSERVED. IVF INFUSING WELL. CALL LIGHT WITHIN REACH. WILL CONTINUE TO MONITOR.
[2017-09-14 06:16] VITALS: BP 91/69
[2017-09-14 06:30] LABS: BASOPHIL % 0.4 % (0-2); PLATELET COUNT 253 x10^3mcL (130-400)
[2017-09-14 06:40] LABS: CALCIUM 8.6 mg/dL (8.5-10.1); CARBON DIOXIDE 27.1 mmol/L (21-32); CHLORIDE SERUM 100 mmol/L (98-107); CREATININE SERUM 1.5 mg/dL (0.7-1.3); GFR1 > 60 mL/min; GLUCOSE SERUM 87 mg/dL (74-106); POTASSIUM SERUM 3.7 mmol/L (3.5-5.1); SODIUM SERUM 136 mmol/L (136-145)
--- NOTE | 2017-09-14 06:40 | NUR ---
PT SLEPT WELL THROUGHOUT THE NIGHT, BUT EASILY AROUSABLE. NO RESP DISTRESS NOTED, BREATHING IS EVEN AND UNLABORED. NO SIGNS OF PAIN OBSERVED. IVF INFUSING WELL. ALL NEEDS MET. CALL LIGHT WITHIN REACH. WILL ENDORSE CARE TO AM NURSE.
[2017-09-14 06:44] LABS: RED CELL DISTRIBUTION WIDTH 17.1 % (11.5-14.5)
--- NOTE | 2017-09-14 07:17 | NUR ---
CANCELLATION REQUESTED FOR ECHOCARDIOGRAM
--- NOTE | 2017-09-14 08:00 | NUR ---
SLEEPING, AROUSABLE. ORIENTED X3. CLEAR SPEECH. BREATHING SOUND DIMINISHED SANDEE, O2 SAT 100% ON RA WHEN AWAKE, BUT O2 SAT DROPPED TO 89% ON SLEEPING. O2 2L VIA N/C APPLIED. TELE#8 = SR W/ RBBB; HR = 90. DENIED CHEST PAIN. AICD TO LT UPPER CHEST WALL. EDEMA 3+ TO BLES WITH REDNESS. IVF OF TKO, 10CC/HR PER ORDER. IV SITE TO LAC INTACT. RASHES WITH REDNESS TO RT SIDE OF CHEST AND JOSEPH AREA, HISTOLOGY TECHNICIAN. NO S/S OF PAIN. CALL LIGHT IN REACH.
--- NOTE | 2017-09-14 08:25 | NUR ---
DR. TIERNEY AND MEDICAL TEAM MADE MORNING ROUND. PLAN OF CARE DISCUSSED WITH PATIENT, INCLUDED WITH CONTINUE TREATMENT OF CHF. PATIENT AGREED WITH PLAN OF CARE.
[2017-09-14 08:51] VITALS: BP 98/74
--- NOTE | 2017-09-14 11:16 | NUR ---
CLEARED WITH DR. CYR - PATIENT'S B/P = 97/65. NEW PARIMETER TO HOLD LAXIS 60MG IVP IS SBP < 80, DBP < 50. LASIX 60MG IVP GIVEN PER ORDER. CONTINUE MONITOR.
[2017-09-14 12:18] VITALS: BP 97/65
[2017-09-14 17:20] VITALS: BP 99/69
--- NOTE | 2017-09-14 17:30 | NUR ---
PATIENT HAD SLIGHT SOB; O2 SAT 100% RA ON AWAKE. BUT WAS 82% ON SLEEPING. MIKHAIL, RT, PUT BI-PAP TO PATIENT. BUT PATIENT REFUSED AND C/O BI-PAP CAUSE BREATHING DIFFICULTY. BI-PAP D/C'D. 02 2L VIA N/C APPLIED. DR. BERG CAME TO SEE PATIENT. NEW ORDER OF LASIX 60MG IVP GIVEN PER ORDER.
--- NOTE | 2017-09-14 18:44 | NUR ---
MRSA (+) TO NARES. CONTACT ISOLATION APPLIED. DR. SUE NOTIFIED.
--- NOTE | 2017-09-14 19:52 | NUR ---
RECEIVED PATIENT ON HIGH FOWLERS POSITION WITH NO SIGN OF ACUTE RESPIRATORY DISTRESS BREATHING EASYA ND NONLABOR. ON O2 AT 2L VIA NC AND ON CONTINOUS PULSE OXIMETRY SATTING AT 100%. TELE# 8 SR WITH BBB ON MONITOR WITH AICD. EDEMA TO BLE 3+ ON HEPARIN 5000 UNITS SQ. IV TO LAC INTACT AND INFUSING WELL. WILL CONTINUE TO MONITOR. CALL LIGHT WITHIN REACH.
[2017-09-14 21:07] VITALS: BP 102/69
--- NOTE | 2017-09-14 21:22 | NUR ---
C/O BACKPAIN MEDICATED WITH NORCO 1 TAB PO PRESCRIBED. WILL CONTINUE TO MONITOR.
--- NOTE | 2017-09-15 02:16 | NUR ---
SLEEPING THIS TIME BREATHING EASY AND NONLABOR. WILL CONTINUE TO MONITOR.
--- NOTE | 2017-09-15 05:24 | NUR ---
C/O GENERALIZED PAIN X1 AND MEDICATED PRESCRIBED. ALL NEEDS ATTENDED.
[2017-09-15 06:09] VITALS: BP 101/76
[2017-09-15 06:53] LABS: BASOPHIL % 0.3 % (0-2); PLATELET COUNT 266 x10^3mcL (130-400)
[2017-09-15 06:55] LABS: RED CELL DISTRIBUTION WIDTH 17.2 % (11.5-14.5)
[2017-09-15 07:13] LABS: CALCIUM 8.5 mg/dL (8.5-10.1); CARBON DIOXIDE 22.7 mmol/L (21-32); CHLORIDE SERUM 102 mmol/L (98-107); CREATININE SERUM 1.3 mg/dL (0.7-1.3); GFR1 > 60 mL/min; GLUCOSE SERUM 86 mg/dL (74-106); POTASSIUM SERUM 4.7 mmol/L (3.5-5.1); SODIUM SERUM 134 mmol/L (136-145)
--- NOTE | 2017-09-15 08:00 | NUR ---
PATIENT SLEEPING, AROUSABLE, ORIENTED X3. TELE#8 = SR WITH RBBB; HR = 96; DENIED CHEST PAIN. SLIGHT LABORRED BREATHING ON EXCERTION. BREATHING SOUND DIMINISHED SANDEE BASES. O2 SAT RA 99% TO 100% WHEN AWAKE; O2 SAT 84% RA, AT TIMES, ON DEEP SLEEPING. EDEMA 3+ WITH BEEFY REDNESS TO BLE. RASHES WITH REDNESS TO RT BREAST/JOSEPH AREA, ELECTRICAL PROSPECTING ENGINEER. IV TKO TO LAC. IV SITE TO LAC INTACT. BED RESTING. TOLERATED BREAKFAST. HAD BM THIS FRYER OPERATOR. FLUID RESTRAICTION 1800CC/DAILY. BODY WEIGHT 292.5 LBS. PATIENT C/O BOSSMAN PAIN WHEN AWAKE, BUT ABLE TO SLEEP WITHIN 5 MINS. CALL LIGHT IN REACH. CONTACT ISOLATION IN PLACE.
--- NOTE | 2017-09-15 09:00 | NUR ---
DR. PALAFOX AND MEDICAL TEAM MADE MORNING ROUND. PLAN OF CARE DISCUSSED WITH PATIENT, INCLUDED WITH TREATMET OF CHF. PATIENT AGREED WITH PLAN OF CARE.
[2017-09-15 09:38] VITALS: BP 120/72
[2017-09-15 13:26] VITALS: BP 112/85
--- NOTE | 2017-09-15 17:00 | NUR ---
IV TO LAC LEAKING AND D/C'D. NEW IV INSERTED TO RFA WITH 20G NEEDLE.
[2017-09-15 17:41] VITALS: BP 105/67
[2017-09-15 17:44] VITALS: BP 105/67
--- NOTE | 2017-09-15 18:23 | NUR ---
LASIX 60MG IVP X2 GIVEN THIS SHIFT. VOID 2200 CC URINE VIA URINAL. HAD BM X1 EARLY THIS AM. O2 SAT 99-100% ON RA; BUT PATIENT'S O2 SAT WAS DROPPED TO 81% ON DEEP SLEEPING. DR. CYR NOTIFIED AND AWARE OF. CONTINOUS PULSE-OX METER ON. RT PROTOCOL. ENDORSED CARE TO [facility] NURSE.
--- NOTE | 2017-09-15 19:21 | NUR ---
RECEIVED PATIENT SITTING ON THEBED WITH NO SIGN OF ACUTE RESPIRATORY DISTRESS, ON CONTINOUS PULSE OXIMETER SATTING AT 100# RA. TELE#8 NSR WITH BBB MONITOR WITH ICD TO LEFT CHESTWALL. PITTING EDEMA TO BLE ON HEPARIN SQ 5000 UNITS. IV TO RFA INTACTA ND INFUSING WELL. WILL CONTINUE TO MONITOR. CALL LIGHT WITHIN REACH. ON ISOLATION PRECAUTION.
--- NOTE | 2017-09-15 20:25 | NUR ---
C/O GENERALIZED BODY PAIN MEDICATED WITH NORCO 1 TAB PO PRESCRIBED. WILL CONTINUE TO MONITOR.
[2017-09-15 20:46] VITALS: BP 115/71
--- NOTE | 2017-09-16 00:30 | NUR ---
SLEEPING THIS TIME BREATHING EASY AND NONLABOR, 100% ON CONTINOUS PULSE OXYMETER. WILL CONTINUE TO MONITOR.
--- NOTE | 2017-09-16 01:45 | NUR ---
AWAKE THIS TIME C/O PAIN TO RT SIDE OF BODY AND BLE, MEDICATED WITH NORCO 1 TAB PO PRESCRIBED. WILL CONTINUE TO MONITOR.
--- NOTE | 2017-09-16 05:22 | NUR ---
AWAKE MOST OF THE TIME C/O GEMRALIZED BODY PAIN MEDICATED FO PAIN PRESCRIBED. KEPT ON ISOLATION PRECAUTION. ALL NEEDS ATTENDED.
[2017-09-16 05:53] VITALS: BP 103/60
[2017-09-16 07:31] LABS: CALCIUM 8.4 mg/dL (8.5-10.1); CHLORIDE SERUM 100 mmol/L (98-107); CREATININE SERUM 1.4 mg/dL (0.7-1.3); GFR1 > 60 mL/min; GLUCOSE SERUM 83 mg/dL (74-106); POTASSIUM SERUM 4.5 mmol/L (3.5-5.1); SODIUM SERUM 135 mmol/L (136-145)
--- NOTE | 2017-09-16 08:00 | NUR ---
AWAKE AND ALERT. TEMP 98. TELE #8 SINUS RHYTHM WITH BBB. LEFT CHEST PACEMAKER NOTED. DENIES CHEST DISCOMFORT AT THIS TIME. RESP 18 EVEN. BREATH SOUNDS DIMINISHED. OCCASIONAL DRY NON PRODUCTIVE COUGH. CONTINUOUS PULSE OX 94-100% ON ROOM AIR. ABD ROUNDED BUT SOFT, BOWEL TONES PRESENT. LBM=11-7-17. VOIDING QS. URINAL WITHIN REACH. ON LASIX 60MG IV BID. BLE EDEMATOUS 2+, SKIN RED AND PT C/O TENDERNESS TO TOUCH. ELEVATED ON PILLOW TO FLOAT HEELS. PULSES PRESENT. IV PATENT RFA INFUSING NORMAL SALINE 10CC/HR TKO. ON FLUID RESTRICTION 1800CC/24 HOURS. PT COMPLIANT WITH FLUID RESTRICTION. WEIGHT VIA [id number], 129.2 KG. CONTINUES ON CONTACT ISOLATION PRECAUTIONS. SCD IN PLACE. ON HEPARIN SQ BID FOR DVT PROPHYLAXIS. SIDE RAILS UP X2. CALL LIGHT IN REACH.
[2017-09-16 08:35] VITALS: BP 109/80
[2017-09-16 09:21] VITALS: BP 109/80
--- NOTE | 2017-09-16 09:30 | NUR ---
DR PALAFOX AND MEDICAL TEAM IN ON ROUNDS. CHARGE NURSE AND PRIMARY NURSE PRESENT. DISCUSSED PT STATUS AND NEED TO AMBULATE WITH FWW. PT CONTINUES TO C/O RIGHT SIDED MIDDLE BACK DISCOMFORT RADIATES AROUND TO ABD. STATES "I HAVE TAKEN THE NORCO FOR 2 YEARS NOW AND IT DOES NOT WORK WELL." SPOKE WITH DR CYR AND UPDATED PT STATUS, PAIN MANAGEMENT AND AMBULATION STATUS. PT STATES "HAS WALKED IN ROOM." WILL CONTINUE TO MONITOR PT STATUS, FOR POSSIBLE DISCHARGE HOME TODAY OR IN AM. PT VERBALIZED UNDERSTANDING.
--- NOTE | 2017-09-16 11:35 | NUR ---
OVW=[id number]. NO RISS COVERAGE. PT CONTINUES TO C/O RIGHT SIDED MIDDLE BACK DISCOMFORT RADIATES AROUND TO STOMACH 08/18. SPOKE WITH DR CYR TO UPDATE ON PAIN MANAGEMENT. TO ORDER TORADOL IV. PT REQUESTS [facility] FOR LUNCH. VOIDED 400CC CARLA URINE. PHYSICAL THERAPY EVAL TODAY. TO LEAVE FWW IN ROOM FOR AMBULATION.
--- NOTE | 2017-09-16 12:00 | NUR ---
PT SLEEPING. NO DISTRESS NOTED. CALL LIGHT IN REACH.
--- NOTE | 2017-09-16 13:00 | NUR ---
PT AWAKE. REQUESTS PAIN MEDICATION FOR RIGHT MIDDLE BACK DISCOMFORT 06/18. MED WITH TORADOL 30M IVP ORDERED. DR BERG IN TO SEE PT.
--- NOTE | 2017-09-16 13:30 | NUR ---
SPOKE WITH PHYSICAL THERAPY, WILL BE IN THIS AFTERNOON FOR EVAL. PT REPORTS "STARTING TO FEEL A LITTLE BETTER." CALL LIGHT IN REACH.
[2017-09-16 13:51] VITALS: BP 109/77
--- NOTE | 2017-09-16 14:21 | NUR ---
Initial Nutrition Assessment Dx: CHF exacerbation PMHx: CHF, Hypothyroidism, HTN, Dyslipidemia PSHx: ICD placement in 2016 Labs: (09/16) Na:135L, B, BUN:29H, Cr:1.4H, Ca;8.4L (09/13) T bili:4.35H, BNP:1110H Meds: Colace, Humulin, Lasix, NS IV, Synthroid, Theragran, Heparin Diet:Cardiac with fluid restriction up to 1800ml/day PO Intake: (09/15) sandwich and apple juice B:100%, L:100% Ht: 67in, 5'7" Wt:270#, 122.92kg BMI: 42.4kg/m2 (obesity class III) IBW: 148#,67kg %IBW: 182% UBW:253# per pt Weight hx: (01/2017) 261#, 118.4kg, (12/2016) 253#, 115kg (11/2016) 277#,126kg (03/2016) 280#, 127kg Age:27y/o male Food Allergies:NKFA Skin:intact with redness noted to right breast and flank. Erlin:21 Edema:+2 BLE GI:active bowel sounds Last BM:09/15 Nutrition Consult: pt with CHF, please evaluate for fluid needs Pt admitted with ACSDHF with Dilated cardiomyopathy w/ history of SC with ICD placement, pulmonary HTN and Hyperbilirubinemia Bili 4.35 possible 2/2 cirrhosis of the liver w/ ascites. ECHO on 03/2017 with left ventricle severely dilated and EF:15-20%, per H&P. Per progress note 09/15, MRSA nares positive, patients 02 drops to 82% when sleeping on room air but is 100% awake. Pt is encouraged to ambulate and walker was ordered to aid patient. Pt is still c/o BL flank pain where he has fluid collection from his edema. Per Dr. Duarte , recommend fluid restriction, IV Lasix, Carvedilol, ACEI, Spironolactone, Salt restriction, Cardiac limitation. Per bed huddle this morning, pt to possibly discharge tomorrow. During visit observed pt laying in bed. Pt reports to UBW:253# with weight gain due to fluid retention. Pt reports to having a good appetite with no GI issues. Problem with: N:No V:No D: No C:No Problems with: Chewing: No Swallowing: No Current appetite: Good Recent wt change:+17# wt gain %wt change:-6.7% Vitamin/Supplement use:No Special diet at home:2gm Na and 1.5L fluid restriciton Physical activity: No, pt states he gets "winded" when he walks Education: Pt declined nutrition education at this time due to having education on low sodium, fluid restricted diet from previous assesment. Estimated Nutritional Needs Based on ideal body weight 67 kg Energy: 1675-2010kcal/d (25-30kcal/kg for maintenance) Protein: 54-67g/d (0.8-1.0g/kg for maintenance) Fluid: 1340-1675ml/d (20-25ml/kg for CHF) or per doctor Nutrition Diagnosis 1. Limited adherence to nutrition related recommendations related to pt's lifestyle decisons as evidenced by pt with history of non-compliance. Intervention 1. Recommend continue with cardiac diet. 2. Recommend 1-1.5L/day fluid restriction. 3. Daily weights to assess trend. Monitor/Evaluate Goal: PO intake at least 75% of estimated needs Monitor: PO intake, Labs, GI function Follow up in 7 days as low risk:09/23
--- NOTE | 2017-09-16 14:23 | NUR ---
1. Recommend continue with cardiac diet. 2. Recommend 1-1.5L/day fluid restriction. 3. Daily weights to assess trend.
--- NOTE | 2017-09-16 16:00 | NUR ---
PT RESTING RELAXED. STATES "PAIN DOING BETTER BUT STILL HURTS." VOIDING QS 400CC CARLA URINE. BLE ELEVATED ON PILLOW TO FLOAT HEELS.
[2017-09-16 16:24] VITALS: BP 96/67
--- NOTE | 2017-09-16 16:30 | NUR ---
RBS=92MG. NO RISS COVERAGE. REPORTS "FEELING BETTER, STILL HAS SOME PAIN 05/18." IV CONTINUES PATENT. CONTACT ISOLATION MAINTAINED. CALL LIGHT IN REACH.
--- NOTE | 2017-09-16 18:53 | NUR ---
PT RESTING. NO CHANGE IN ASSESSMENT. CALL LIGHT IN REACH.
--- NOTE | 2017-09-16 19:30 | NUR ---
RECEIVED PT RESTING IN BED WITH EYES CLOSED. BREATHING EQUAL AND UNLABORED. APPEARS DROWSY, BUT AROUSABLE. NO S/S OF RESPIRATORY DISTRESS NOTED. REMAINS ON CONTINUOUS PULSE OX MONITOR 100%. LUNGS WITH FAINT CRACKLES TO RIGHT LOBE. ON TELE 8, NSR. DENIES ANY CHEST PAIN. ABD SOFT AND ROUND. BOWEL SOUNDS ACTIVE. SKIN WARM AND DRY. IV TO RIGHT FA PATENT AND INTACT. NO S/S OF INFECTION NOTED. NOTED WITH NONPITTING EDEMA TO BLE WITH REDNESS. PEDAL PULSES WEAK, BUT PALPABLE. DENIES ANY PAIN AT THIS TIME. NO S/S OF DISTRESS NOTED. CALL LIGHT WITHIN REACH. WILL CONTINUE TO MONITOR.
[2017-09-16 20:59] VITALS: BP 102/73
--- NOTE | 2017-09-16 23:00 | NUR ---
PT C/O 10/10 RIGHT FLANK AND BLE PAIN. BLE REMAINS ELEVATED ON PILLOW. PRN TORADOL 30 MG IVP GIVEN. NO S/S OF RESPIRATORY DISTRESS NOTED. WILL CONTINUE TO MONITOR.
--- NOTE | 2017-09-17 00:12 | NUR ---
PT STATES FEELING BETTER. REMAINS ON CONTINUOUS PULSE OX 99%. NO S/S OF RESPIRATORY DISTRESS NOTED. RESTING COMFORTABLY WITH RELAXED FACIAL FEATURES. CALL LIGHT WITHIN REACH. WILL CONTINUE TO MONITOR.
[2017-09-17 05:47] VITALS: BP 01/59; BP 91/59
--- NOTE | 2017-09-17 06:13 | NUR ---
PT SLEPT WELL THROUGH THE NIGHT. EASILY AROUSED WITH VERBAL STIMULI. REMAINS ON CONTINUOUS PULSE OX 100%. NO S/S OF RESPIRATORY DISTRESS NOTED. CALL LIGHT WITHIN REACH. WILL CONTINUE TO MONITOR.
--- NOTE | 2017-09-17 07:20 | NUR ---
RECEIVED Pt. AAOX4, RESPIRATIONS EVEN AND UNLABORED RA ON CONTINUOUS O2SAT MONITORING O2 SAT 98-100% RA. DENIES PAIN/DISCOMFORT AT THIS TIME. TELE IN PLACE HR 91 DENIES CHEST PAIN/PRESSURE. IVF RUNNING TO IV RFA PATENT AND INTACT. ON CONTACT PRECAUTIONS. BED LOW/LOCKED. CALL LIGHT IN REACH. WILL CONTINUE TO [facility].
--- NOTE | 2017-09-17 08:20 | NUR ---
MAD ROUNDS WITH KALINJIAN AND MEDICINE TEAM, Pt. POSSIBLE DISCHARGE TODAY AND AGREED WITH PLAN OF CARE.
[2017-09-17 09:31] VITALS: BP 123/72
[2017-09-17 11:54] VITALS: BP 91/53
[2017-09-17 15:28] VITALS: BP 91/53
[2017-09-17 15:33] VITALS: BP 108/60
[2017-09-17] MEDS ORDERED: HIBICLENS118 ML TOP (15:45)
[2017-09-17] MEDS ORDERED: BACO TOP (15:45)
--- NOTE | 2017-09-17 16:04 | NUR ---
Pt. AAOX4 ALL RX AND DISCHARGE INSTRUCTIONS EXPLAINED TO Pt. AND VERBALIZED UNDERSTANDING. Pt. INSTRUCTED TO FOLLOW UP WITH DR. FRENCH AND VERBALIZED UNDERSTANDING. AWAITING FOR TRANSPORTATION TO ARRIVE.
--- NOTE | 2017-09-17 16:45 | NUR ---
Pt. REPORTED THAT Pt. GRANDMOTHER UNABLE TO PICK HIM UP. SPOKE WITH Pt. GRANDMOTHER EREN ARGCHARBEL IS UNABLE TO DIAGNOSTIC RADIOLOGIC TECHNOLOGIST Pt. NATE LI WAS MADE AWARE.
--- NOTE | 2017-09-17 18:23 | NUR ---
Pt. AAOX4 RESPIRATIONS EVEN AND UNLABORED RA, DENIES PAIN/DISCOMFORT AT THIS TIME. NO DISTRESS NOTED. TELE RETURNED Pt. DENIES CHEST PAIN/PRESSURE. IV RFA REMOVED WITH CATH INTACT. Pt. LEFT WITH ALL BELONGINGS.
== END 2017-09-17 18:25 | disposition home or self-care (01) | DRG 194 ==
LOC: ED → DU 02:05
PROVIDERS: Emergency Medicine; Family Medicine Sports Medicine; ADMIT Student in an Organized Health Care Education/Training Program
PROC: 0HBRXZZ Excision of Toe Nail, External Approach (ICD-10-PCS; principal; 2017-09-14)
PROC: 0HBRXZZ Excision of Toe Nail, External Approach (ICD-10-PCS; 2017-09-14)
PROC: 0HBRXZZ Excision of Toe Nail, External Approach (ICD-10-PCS; 2017-09-14)
PROC: 0HBRXZZ Excision of Toe Nail, External Approach (ICD-10-PCS; 2017-09-14)
PROC: 0HBRXZZ Excision of Toe Nail, External Approach (ICD-10-PCS; 2017-09-14)
PROC: 0HBRXZZ Excision of Toe Nail, External Approach (ICD-10-PCS; 2017-09-14)
PROC: 0HBRXZZ Excision of Toe Nail, External Approach (ICD-10-PCS; 2017-09-14)
PROC: 0HBRXZZ Excision of Toe Nail, External Approach (ICD-10-PCS; 2017-09-14)
PROC: 0HBRXZZ Excision of Toe Nail, External Approach (ICD-10-PCS; 2017-09-14)
PROC: 0HBRXZZ Excision of Toe Nail, External Approach (ICD-10-PCS; 2017-09-14)
DX: I50.43 Acute on chronic combined systolic (congestive) and diastolic (congestive) heart failure (principal); N17.0 Acute kidney failure with tubular necrosis; E43 Unspecified severe protein-calorie malnutrition; I27.20 Pulmonary hypertension, unspecified; R18.8 Other ascites; Z68.41 Body mass index [BMI] 40.0-44.9, adult; E66.01 Morbid (severe) obesity due to excess calories; I42.0 Dilated cardiomyopathy; R80.9 Proteinuria, unspecified; E03.9 Hypothyroidism, unspecified; K74.60 Unspecified cirrhosis of liver; F15.10 Other stimulant abuse, uncomplicated; E87.6 Hypokalemia; B35.3 Tinea pedis; B35.1 Tinea unguium; I87.2 Venous insufficiency (chronic) (peripheral); E78.5 Hyperlipidemia, unspecified; I25.2 Old myocardial infarction; Z87.891 Personal history of nicotine dependence; Z91.14 Patient's other noncompliance with medication regimen; Z95.810 Presence of automatic (implantable) cardiac defibrillator
CPT/HCPCS: 83880; 84439; 90658; 94150; J1644; J1885; J1940; J2405; J7030; J7620; Q0092

== ENCOUNTER 2017-09-29 20:44 | Inpatient (IN) | payer MEDICAID ==
[~2017-09-29] VITALS: Ht 170.2 cm; Wt 113.5 kg
[2017-09-29 21:43] LABS: CALCIUM 9.4 mg/dL (8.5-10.1); CHLORIDE SERUM 96 mmol/L (98-107); CREATININE SERUM 1.2 mg/dL (0.7-1.3); GFR1 > 60 mL/min; GLUCOSE SERUM 112 mg/dL (74-106); POTASSIUM SERUM 4.8 mmol/L (3.5-5.1); SODIUM SERUM 132 mmol/L (136-145)
[2017-09-29 21:47] LABS: ALBUMIN 3.6 g/dL (3.4-5.0); ALKALINE PHOSPHATASE 133 U/L (46-116); ALT/SGPT 20 U/L (16-63); AST/SGOT 17 U/L (15-37); BILIRUBIN TOTAL 3.21 mg/dL (0.20-1.00); LIPASE 92 IU/L (73-393); TOTAL PROTEIN, SERUM 7.9 g/dL (6.4-8.2)
[2017-09-29 21:50] LABS: BASOPHIL % 0.1 % (0-2); PLATELET COUNT 257 x10^3mcL (130-400)
[2017-09-29 21:57] LABS: RED CELL DISTRIBUTION WIDTH 17.1 % (11.5-14.5)
[2017-09-30] VITALS (8 sets, daily range): BP systolic 100–133; BP diastolic 69–94
[2017-09-30 04:49] LABS: T3 TOTAL 0.58 ng/mL
[2017-09-30 04:50] LABS: MAGNESIUM 2.4 mg/dL (1.8-2.4); PHOSPHOROUS 3.4 mg/dL (2.5-4.9)
[2017-09-30 04:53] LABS: FREE T4 1.24 ng/dL (0.76-1.46); FREE THYROXINE INDEX 2.4 ug/dL (1.4-4.5); T4(THYROXINE) 6.9 ug/dL (4.7-13.3)
[2017-09-30 05:33] LABS: UA SPECIFIC GRAVITY 1.015 (1.005-1.035); microscopic required? YES; urine erythrocyte NEGATIVE (NEGATIVE)
[2017-09-30 05:39] LABS: AMPHETAMINE QUAL UR NONE DETECTED (NEG <=1000)
[2017-10-01 03:09] VITALS: BP 101/68
[2017-10-01 05:26] LABS: PLATELET COUNT 272 x10^3mcL (130-400)
[2017-10-01 05:37] LABS: RED CELL DISTRIBUTION WIDTH 17.2 % (11.5-14.5)
[2017-10-01 05:50] LABS: CALCIUM 9.1 mg/dL (8.5-10.1); CARBON DIOXIDE 26.8 mmol/L (21-32); CHLORIDE SERUM 100 mmol/L (98-107); CREATININE SERUM 1.5 mg/dL (0.7-1.3); GFR1 > 60 mL/min; GLUCOSE SERUM 97 mg/dL (74-106); MAGNESIUM 2.3 mg/dL (1.8-2.4); PHOSPHOROUS 3.7 mg/dL (2.5-4.9); POTASSIUM SERUM 4.5 mmol/L (3.5-5.1); SODIUM SERUM 134 mmol/L (136-145)
[2017-10-01 08:22] VITALS: BP 124/82
[2017-10-01 08:47] VITALS: Ht 170.2 cm; Wt 113.5 kg
[2017-10-01 11:50] VITALS: BP 104/75
[2017-10-01 15:42] VITALS: BP 101/71
[2017-10-01 17:46] VITALS: BP 95/70
[2017-10-01 20:38] VITALS: BP 105/68
[2017-10-02 05:48] VITALS: BP 103/57
[2017-10-02 06:43] LABS: BASOPHIL % 0.4 % (0-2); PLATELET COUNT 273 x10^3mcL (130-400)
[2017-10-02 07:03] LABS: CALCIUM 8.9 mg/dL (8.5-10.1); CARBON DIOXIDE 25.5 mmol/L (21-32); CHLORIDE SERUM 98 mmol/L (98-107); CREATININE SERUM 1.4 mg/dL (0.7-1.3); GFR1 > 60 mL/min; GLUCOSE SERUM 81 mg/dL (74-106); POTASSIUM SERUM 4.3 mmol/L (3.5-5.1); SODIUM SERUM 133 mmol/L (136-145)
[2017-10-02 07:18] LABS: RED CELL DISTRIBUTION WIDTH 17.2 % (11.5-14.5)
[2017-10-02 09:00] VITALS: BP 115/71
[2017-10-02 14:00] VITALS: BP 105/70
[2017-10-02] MEDS ORDERED: DIGOXIN0.125 M1 PO (14:35)
[2017-10-02 17:07] VITALS: BP 108/72
[2017-10-02 20:29] VITALS: BP 103/68
[2017-10-03 05:09] VITALS: BP 91/70
[2017-10-03 06:40] VITALS: BP 104/71
[2017-10-03 07:27] LABS: BASOPHIL % 0.3 % (0-2); PLATELET COUNT 265 x10^3mcL (130-400)
[2017-10-03 07:30] LABS: CALCIUM 8.8 mg/dL (8.5-10.1); CARBON DIOXIDE 27.1 mmol/L (21-32); CHLORIDE SERUM 98 mmol/L (98-107); CREATININE SERUM 1.3 mg/dL (0.7-1.3); GFR1 > 60 mL/min; GLUCOSE SERUM 72 mg/dL (74-106); POTASSIUM SERUM 4.1 mmol/L (3.5-5.1); SODIUM SERUM 133 mmol/L (136-145)
[2017-10-03 07:37] LABS: RED CELL DISTRIBUTION WIDTH 17.5 % (11.5-14.5)
[2017-10-03 07:38] LABS: rbc morphology (normal/abnorm) ABNORMAL (NORMAL)
[2017-10-03 10:15] VITALS: BP 105/74
[2017-10-03 17:30] VITALS: BP 117/80
[2017-10-03 20:38] VITALS: BP 115/76
[2017-10-04 05:16] VITALS: BP 111/71
[2017-10-04 07:13] LABS: BASOPHIL % 0.3 % (0-2); PLATELET COUNT 277 x10^3mcL (130-400)
[2017-10-04 07:28] LABS: RED CELL DISTRIBUTION WIDTH 17.4 % (11.5-14.5)
[2017-10-04 07:29] LABS: rbc morphology (normal/abnorm) ABNORMAL (NORMAL)
[2017-10-04 07:40] LABS: CALCIUM 8.6 mg/dL (8.5-10.1); CARBON DIOXIDE 22.7 mmol/L (21-32); CHLORIDE SERUM 99 mmol/L (98-107); CREATININE SERUM 1.2 mg/dL (0.7-1.3); GFR1 > 60 mL/min; GLUCOSE SERUM 112 mg/dL (74-106); SODIUM SERUM 135 mmol/L (136-145)
[2017-10-04 09:22] VITALS: BP 106/65
[2017-10-04 12:27] VITALS: BP 106/65
[2017-10-04] MEDS ORDERED: COUMADIN5 MG PO (13:07)
[2017-10-04 13:22] VITALS: BP 106/65
[2017-10-04] MEDS ORDERED: NOR10T PO (13:24)
== END 2017-10-04 16:30 | disposition home or self-care (01) | DRG 710 ==
LOC: ED 20:44 → DU 09-30 04:26 → IC 09-30 04:26 → DU 09-30 05:16 → MU 09-30 05:17 → IC 09-30 11:17 → DU 10-01 15:51 → MU 10-03 05:06
PROVIDERS: Emergency Medicine; Family Medicine; Surgery; ADMIT Family Medicine
PROC: 0WQF0ZZ Repair Abdominal Wall, Open Approach (ICD-10-PCS; principal; 2017-09-30 09:00)
DX: A41.9 Sepsis, unspecified organism (principal); N17.0 Acute kidney failure with tubular necrosis; I50.43 Acute on chronic combined systolic (congestive) and diastolic (congestive) heart failure; J18.9 Pneumonia, unspecified organism; I42.9 Cardiomyopathy, unspecified; K42.0 Umbilical hernia with obstruction, without gangrene; E87.1 Hypo-osmolality and hyponatremia; E66.01 Morbid (severe) obesity due to excess calories; E86.0 Dehydration; D50.9 Iron deficiency anemia, unspecified; E03.9 Hypothyroidism, unspecified; E78.5 Hyperlipidemia, unspecified; I25.2 Old myocardial infarction; Z68.39 Body mass index [BMI] 39.0-39.9, adult; Z87.891 Personal history of nicotine dependence; F15.21 Other stimulant dependence, in remission; Z79.01 Long term (current) use of anticoagulants; Z95.810 Presence of automatic (implantable) cardiac defibrillator
CPT/HCPCS: 83880; 84439; 94150; J1170; J1956; J2001; J2270; J2405; J2543; J2765; J3010; J3490; J7030; J7120; J7620; Q0092; Q9963

== ENCOUNTER 2017-11-11 12:56 | Inpatient (IN) | payer MEDICAID ==
[~2017-11-11] VITALS: Ht 170.2 cm; Wt 120.2 kg
[~2017-11-11 12:56] MED LIST changes: +DIGOXIN0.125 M1 PO; +NOR10T PO
[2017-11-11 13:07] VITALS: Ht 170.2 cm; Wt 120.2 kg
[2017-11-11 14:29] LABS: BASOPHIL % 1.4 % (0-2); PLATELET COUNT 335 x10^3mcL (130-400)
[2017-11-11 14:36] LABS: CALCIUM 8.5 mg/dL (8.5-10.1); CARBON DIOXIDE 28.7 mmol/L (21-32); CHLORIDE SERUM 96 mmol/L (98-107); CREATININE SERUM 1.2 mg/dL (0.7-1.3); GFR1 > 60 mL/min; GLUCOSE SERUM 130 mg/dL (74-106); POTASSIUM SERUM 3.4 mmol/L (3.5-5.1); SODIUM SERUM 134 mmol/L (136-145)
[2017-11-11 14:40] LABS: ALBUMIN 3.8 g/dL (3.4-5.0); ALKALINE PHOSPHATASE 119 U/L (46-116); ALT/SGPT 15 U/L (16-63); AST/SGOT 27 U/L (15-37); BILIRUBIN TOTAL 3.1 mg/dL (0.20-1.00); CHOLESTEROL 91 mg/dL (<200); LIPASE 53 IU/L (73-393); TOTAL PROTEIN, SERUM 7.5 g/dL (6.4-8.2)
[2017-11-11 14:41] LABS: HDL CHOLESTEROL 27 mg/dL (40-60)
[2017-11-11] MEDS ORDERED: LORAZEPAM0.5 MG (15:26)
[2017-11-11 16:55] LABS: PHOSPHOROUS 2.9 mg/dL (2.5-4.9)
[2017-11-11 16:56] LABS: FREE T4 1.53 ng/dL (0.76-1.46); FREE THYROXINE INDEX 3.1 ug/dL (1.4-4.5); T4(THYROXINE) 7.7 ug/dL (4.7-13.3)
[2017-11-11 16:58] LABS: CHOLESTEROL/HDL RATIO 3.4
[2017-11-11 17:39] LABS: AMPHETAMINE QUAL UR POSITIVE (NEG <=1000)
[2017-11-11 17:42] LABS: T3 TOTAL 0.57 ng/mL
[2017-11-11 18:23] VITALS: BP 123/92
[2017-11-11] MEDS ORDERED: TRAMADOL HCL50 MG PO (21:33)
[2017-11-11 22:17] VITALS: BP 128/89
[2017-11-12 06:47] LABS: BASOPHIL % 0.1 % (0-2); PLATELET COUNT 344 x10^3mcL (130-400)
[2017-11-12 06:49] LABS: RED CELL DISTRIBUTION WIDTH 18.6 % (11.5-14.5)
[2017-11-12 06:51] VITALS: BP 102/61
[2017-11-12] MEDS ORDERED: DIGOXIN0.125 M1 PO (07:05)
[2017-11-12] MEDS ORDERED: METOLAZONE2.5 M1 PO (07:06)
[2017-11-12 08:08] LABS: CALCIUM 8.3 mg/dL (8.5-10.1); CARBON DIOXIDE 21.9 mmol/L (21-32); CREATININE SERUM 1.8 mg/dL (0.7-1.3); POTASSIUM SERUM 4.8 mmol/L (3.5-5.1)
[2017-11-12 08:38] LABS: rbc morphology (normal/abnorm) ABNORMAL (NORMAL)
[2017-11-12 09:23] VITALS: BP 115/84
[2017-11-12 13:21] VITALS: BP 112/77
[2017-11-12 16:52] VITALS: BP 107/64
[2017-11-12 22:23] VITALS: BP 109/67
[2017-11-13 04:28] LABS: BASOPHIL % 0.8 % (0-2); PLATELET COUNT 315 x10^3mcL (130-400)
[2017-11-13 04:39] LABS: CALCIUM 8.4 mg/dL (8.5-10.1); CARBON DIOXIDE 24.3 mmol/L (21-32); CHLORIDE SERUM 100 mmol/L (98-107); CREATININE SERUM 1.4 mg/dL (0.7-1.3); GFR1 > 60 mL/min; GLUCOSE SERUM 115 mg/dL (74-106); MAGNESIUM 1.9 mg/dL (1.8-2.4); PHOSPHOROUS 3.2 mg/dL (2.5-4.9); POTASSIUM SERUM 4.4 mmol/L (3.5-5.1); SODIUM SERUM 132 mmol/L (136-145)
[2017-11-13 04:40] LABS: RED CELL DISTRIBUTION WIDTH 19.2 % (11.5-14.5)
[2017-11-13 06:41] VITALS: BP 112/67
[2017-11-13 09:30] VITALS: BP 103/75
[2017-11-13 13:01] VITALS: BP 107/68
[2017-11-13 18:10] VITALS: BP 100/68
[2017-11-13 20:35] VITALS: BP 109/82
[2017-11-14 04:30] VITALS: BP 113/77
[2017-11-14 07:15] LABS: BASOPHIL % 0.2 % (0-2); PLATELET COUNT 326 x10^3mcL (130-400)
[2017-11-14 07:16] LABS: RED CELL DISTRIBUTION WIDTH 19.4 % (11.5-14.5)
[2017-11-14 07:17] LABS: rbc morphology (normal/abnorm) ABNORMAL (NORMAL)
[2017-11-14 07:56] LABS: CALCIUM 8.6 mg/dL (8.5-10.1); CARBON DIOXIDE 23.3 mmol/L (21-32); CHLORIDE SERUM 96 mmol/L (98-107); CREATININE SERUM 1.1 mg/dL (0.7-1.3); GFR1 > 60 mL/min; GLUCOSE SERUM 95 mg/dL (74-106); MAGNESIUM 2.1 mg/dL (1.8-2.4); PHOSPHOROUS 3.1 mg/dL (2.5-4.9); SODIUM SERUM 129 mmol/L (136-145)
[2017-11-14 08:20] VITALS: BP 116/80
[2017-11-14 14:30] VITALS: BP 109/72
[2017-11-14 17:29] VITALS: BP 110/65
[2017-11-14 18:28] LABS: RED BLOOD CELLS 5.35 M/mm3 (4.52-5.90)
[2017-11-14 18:47] LABS: IRON 19 ug/dL (65-170); TOTAL IRON BINDING CAPACITY 447 ug/dL (250-450)
[2017-11-14 21:01] VITALS: BP 120/63
[2017-11-15 05:14] VITALS: BP 106/60
[2017-11-15 06:52] LABS: BASOPHIL % 0.4 % (0-2); PLATELET COUNT 325 x10^3mcL (130-400)
[2017-11-15 07:16] LABS: CALCIUM 8.6 mg/dL (8.5-10.1); CARBON DIOXIDE 25.8 mmol/L (21-32); CHLORIDE SERUM 93 mmol/L (98-107); GFR1 > 60 mL/min; GLUCOSE SERUM 98 mg/dL (74-106); POTASSIUM SERUM 4.6 mmol/L (3.5-5.1); SODIUM SERUM 127 mmol/L (136-145)
[2017-11-15 08:50] VITALS: BP 123/70
[2017-11-15 09:30] VITALS: BP 105/77
[2017-11-15 14:00] VITALS: BP 101/62
[2017-11-15 18:45] VITALS: BP 104/61
[2017-11-15 21:36] VITALS: BP 108/66
[2017-11-16 05:15] VITALS: BP 107/62
[2017-11-16 06:50] LABS: BASOPHIL % 0.1 % (0-2); PLATELET COUNT 317 x10^3mcL (130-400)
[2017-11-16 06:51] LABS: CALCIUM 8.6 mg/dL (8.5-10.1); CARBON DIOXIDE 27.5 mmol/L (21-32); CHLORIDE SERUM 94 mmol/L (98-107); CREATININE SERUM 0.9 mg/dL (0.7-1.3); GFR1 > 60 mL/min; GLUCOSE SERUM 102 mg/dL (74-106); POTASSIUM SERUM 4.6 mmol/L (3.5-5.1); SODIUM SERUM 125 mmol/L (136-145)
[2017-11-16 07:02] LABS: RED CELL DISTRIBUTION WIDTH 19.2 % (11.5-14.5)
[2017-11-16 08:00] VITALS: BP 114/70
[2017-11-16 13:43] VITALS: BP 103/65
[2017-11-16 16:47] VITALS: BP 107/59
[2017-11-16 19:07] LABS: SOURCE FLUID THORACENTESIS
[2017-11-16 21:12] VITALS: BP 97/52
[2017-11-17 05:36] VITALS: BP 93/57
[2017-11-17 06:37] LABS: CALCIUM 8.5 mg/dL (8.5-10.1); CARBON DIOXIDE 27.2 mmol/L (21-32); CHLORIDE SERUM 95 mmol/L (98-107); CREATININE SERUM 0.9 mg/dL (0.7-1.3); GFR1 > 60 mL/min; GLUCOSE SERUM 85 mg/dL (74-106); MAGNESIUM 2.1 mg/dL (1.8-2.4); POTASSIUM SERUM 4.9 mmol/L (3.5-5.1); SODIUM SERUM 130 mmol/L (136-145)
[2017-11-17 06:59] LABS: PLATELET COUNT 316 x10^3mcL (130-400); RED CELL DISTRIBUTION WIDTH 19.1 % (11.5-14.5)
[2017-11-17 07:00] LABS: BASOPHIL % 0.1 % (0-2)
[2017-11-17] MEDS ORDERED: ECO81 PO (08:46)
[2017-11-17] MEDS ORDERED: LIPI10 PO (08:46)
[2017-11-17] MEDS ORDERED: ZITHROMAX Z-PA250 MG PO (08:58)
[2017-11-17] MEDS ORDERED: LAC PO (08:58)
[2017-11-17 09:39] VITALS: BP 105/64; BP 149/82
[2017-11-17] MEDS ORDERED: ROBL PO (11:16)
[2017-11-17 12:08] VITALS: BP 105/64
== END 2017-11-17 15:32 | disposition home or self-care (01) | DRG 812 ==
LOC: ED 12:56 → DU 15:29
PROVIDERS: Emergency Medicine; Family Medicine
PROC: 0W993ZZ Drainage of Right Pleural Cavity, Percutaneous Approach (ICD-10-PCS; principal; 2017-11-16)
DX: T43.621A Poisoning by amphetamines, accidental (unintentional), initial encounter (principal); N17.0 Acute kidney failure with tubular necrosis; I50.43 Acute on chronic combined systolic (congestive) and diastolic (congestive) heart failure; J18.9 Pneumonia, unspecified organism; J90 Pleural effusion, not elsewhere classified; I42.0 Dilated cardiomyopathy; I11.0 Hypertensive heart disease with heart failure; K76.0 Fatty (change of) liver, not elsewhere classified; E11.65 Type 2 diabetes mellitus with hyperglycemia; E87.1 Hypo-osmolality and hyponatremia; Z68.41 Body mass index [BMI] 40.0-44.9, adult; K72.90 Hepatic failure, unspecified without coma; F15.288 Other stimulant dependence with other stimulant-induced disorder; Z79.01 Long term (current) use of anticoagulants; I16.0 Hypertensive urgency; F31.9 Bipolar disorder, unspecified; E87.6 Hypokalemia; E03.9 Hypothyroidism, unspecified; E78.5 Hyperlipidemia, unspecified; I25.2 Old myocardial infarction; E66.01 Morbid (severe) obesity due to excess calories; Z87.891 Personal history of nicotine dependence; Z95.810 Presence of automatic (implantable) cardiac defibrillator; Y92.009 Unspecified place in unspecified non-institutional (private) residence as the place of occurrence of the external cause
CPT/HCPCS: 32555; 82947; 83880; 84439; 87804; 88344; C1729; J0456; J0696; J1642; J1644; J1940; J1956; J2270; J2405; J3480; J3490; J7030; J7620; Q0092

== ENCOUNTER 2017-12-02 22:14 | Inpatient (IN) | payer MEDICAID ==
[~2017-12-02] VITALS: Ht 170.2 cm; Wt 118.0 kg
[~2017-12-02 22:14] MED LIST changes: +LIPI10 PO; +LORAZEPAM0.5 MG; +ROBL PO; +TRAMADOL HCL50 MG PO; +ZITHROMAX Z-PA250 MG PO
[2017-12-02 23:43] LABS: BASOPHIL % 0.7 % (0-2); PLATELET COUNT 352 x10^3mcL (130-400)
[2017-12-02 23:52] LABS: CALCIUM 8.5 mg/dL (8.5-10.1); CARBON DIOXIDE 27.5 mmol/L (21-32); CHLORIDE SERUM 99 mmol/L (98-107); CREATININE SERUM 1.5 mg/dL (0.7-1.3); GFR1 > 60 mL/min; GLUCOSE SERUM 76 mg/dL (74-106); SODIUM SERUM 137 mmol/L (136-145)
[2017-12-02 23:59] LABS: RED CELL DISTRIBUTION WIDTH 20.4 % (11.5-14.5)
[2017-12-03] VITALS (18 sets, daily range): BP systolic 97–122; BP diastolic 68–84
[2017-12-03 00:10] LABS: ALBUMIN 3.4 g/dL (3.4-5.0); ALKALINE PHOSPHATASE 119 U/L (46-116); ALT/SGPT 17 U/L (16-63); AST/SGOT 18 U/L (15-37); BILIRUBIN TOTAL 2.4 mg/dL (0.20-1.00); TOTAL PROTEIN, SERUM 6.7 g/dL (6.4-8.2)
[2017-12-03 02:48] LABS: MAGNESIUM 2.2 mg/dL (1.8-2.4); PHOSPHOROUS 4.5 mg/dL (2.5-4.9)
[2017-12-03 02:50] LABS: CHOLESTEROL/HDL RATIO 3.8
[2017-12-03 02:56] LABS: microscopic required? NO
[2017-12-03 03:30] LABS: UA SPECIFIC GRAVITY 1.025 (1.005-1.035); urine erythrocyte NEGATIVE (NEGATIVE)
[2017-12-03 04:45] LABS: AMPHETAMINE QUAL UR POSITIVE (NEG <=1000)
[2017-12-04 04:40] VITALS: BP 96/70
[2017-12-04 08:05] LABS: CALCIUM 8.6 mg/dL (8.5-10.1); CARBON DIOXIDE 24.2 mmol/L (21-32); CREATININE SERUM 1.7 mg/dL (0.7-1.3); MAGNESIUM 2.3 mg/dL (1.8-2.4); PHOSPHOROUS 5.1 mg/dL (2.5-4.9)
[2017-12-04 08:08] LABS: BASOPHIL % 0.4 % (0-2); PLATELET COUNT 344 x10^3mcL (130-400)
[2017-12-04 08:13] LABS: RED CELL DISTRIBUTION WIDTH 19.8 % (11.5-14.5)
[2017-12-04 08:14] LABS: rbc morphology (normal/abnorm) ABNORMAL (NORMAL)
[2017-12-04 09:30] VITALS: BP 101/73
[2017-12-04 13:02] VITALS: BP 108/69
[2017-12-04 17:03] VITALS: BP 104/72
[2017-12-04 18:02] LABS: RED BLOOD CELLS 5.4 M/mm3 (4.52-5.90)
[2017-12-04 18:40] LABS: TOTAL IRON BINDING CAPACITY 424 ug/dL (250-450)
[2017-12-04 18:54] LABS: IRON 18 ug/dL (65-170)
[2017-12-04 20:31] VITALS: BP 110/72
[2017-12-05 05:54] VITALS: BP 103/68
[2017-12-05 06:45] LABS: BASOPHIL % 0.3 % (0-2); PLATELET COUNT 341 x10^3mcL (130-400); RED CELL DISTRIBUTION WIDTH 20.1 % (11.5-14.5)
[2017-12-05 07:45] LABS: CALCIUM 8.8 mg/dL (8.5-10.1); CARBON DIOXIDE 25.1 mmol/L (21-32); CREATININE SERUM 1.8 mg/dL (0.7-1.3); PHOSPHOROUS 4.8 mg/dL (2.5-4.9); POTASSIUM SERUM 4.7 mmol/L (3.5-5.1)
[2017-12-05 09:10] VITALS: BP 103/68
[2017-12-05 09:27] VITALS: BP 94/65
[2017-12-05 13:12] VITALS: BP 102/69
== END 2017-12-05 14:39 | disposition hospice, home (50) | DRG 194 ==
LOC: ED 22:14 → DU 12-03 01:11
PROVIDERS: Emergency Medicine; Family Medicine
PROC: 0W993ZZ Drainage of Right Pleural Cavity, Percutaneous Approach (ICD-10-PCS; principal; 2017-12-03)
DX: I11.0 Hypertensive heart disease with heart failure (principal); N17.0 Acute kidney failure with tubular necrosis; Z68.41 Body mass index [BMI] 40.0-44.9, adult; I08.1 Rheumatic disorders of both mitral and tricuspid valves; E87.1 Hypo-osmolality and hyponatremia; E83.39 Other disorders of phosphorus metabolism; I50.43 Acute on chronic combined systolic (congestive) and diastolic (congestive) heart failure; F15.229 Other stimulant dependence with intoxication, unspecified; F31.9 Bipolar disorder, unspecified; F41.1 Generalized anxiety disorder; F41.0 Panic disorder [episodic paroxysmal anxiety]; F90.9 Attention-deficit hyperactivity disorder, unspecified type; E03.9 Hypothyroidism, unspecified; Z66 Do not resuscitate; Z51.5 Encounter for palliative care; Z87.891 Personal history of nicotine dependence; Z95.810 Presence of automatic (implantable) cardiac defibrillator
CPT/HCPCS: 32555; 83880; 84439; 87804; J1170; J1644; J1940; J2001; J2405; J7030; J7620; Q0092

== ENCOUNTER 2018-01-31 23:08 | Inpatient (IN) | payer MEDICAID ==
[~2018-01-31] VITALS: Ht 170.2 cm; Wt 115.7 kg
[2018-02-01 00:25] LABS: BASOPHIL % 0.2 % (0-2); PLATELET COUNT 300 x10^3mcL (130-400)
[2018-02-01 00:29] LABS: CARBON DIOXIDE 29.4 mmol/L (21-32); CHLORIDE SERUM 101 mmol/L (98-107); CREATININE SERUM 1.1 mg/dL (0.7-1.3); GFR1 > 60 mL/min; GLUCOSE SERUM 77 mg/dL (74-106); POTASSIUM SERUM 3.6 mmol/L (3.5-5.1); RED CELL DISTRIBUTION WIDTH 21.8 % (11.5-14.5); SODIUM SERUM 137 mmol/L (136-145)
[2018-02-01 00:30] LABS: ALBUMIN 3.6 g/dL (3.4-5.0); ALKALINE PHOSPHATASE 122 U/L (46-116); ALT/SGPT 19 U/L (16-63); AST/SGOT 29 U/L (15-37); BILIRUBIN TOTAL 2.29 mg/dL (0.20-1.00); TOTAL PROTEIN, SERUM 6.9 g/dL (6.4-8.2)
[2018-02-01 02:22] VITALS: BP 111/75
[2018-02-01 03:39] LABS: CHOLESTEROL/HDL RATIO 3.2; PHOSPHOROUS 4.3 mg/dL (2.5-4.9)
[2018-02-01 03:46] LABS: FREE T4 1.53 ng/dL (0.76-1.46); FREE THYROXINE INDEX 2.6 ug/dL (1.4-4.5); T4(THYROXINE) 7.9 ug/dL (4.7-13.3)
[2018-02-01 04:18] LABS: microscopic required? NO
[2018-02-01 04:37] LABS: urine erythrocyte NEGATIVE (NEGATIVE)
[2018-02-01 04:54] LABS: AMPHETAMINE QUAL UR POSITIVE (NEG <=1000)
[2018-02-01 06:00] VITALS: BP 120/77
[2018-02-01 08:25] VITALS: BP 108/72
[2018-02-01 08:35] VITALS: Ht 170.2 cm; Wt 115.7 kg
[2018-02-01 09:22] LABS: T3 TOTAL 0.88 ng/mL
[2018-02-01 13:41] VITALS: BP 112/81
[2018-02-01 17:11] VITALS: BP 112/75
[2018-02-01 21:23] VITALS: BP 96/71
[2018-02-02 06:04] VITALS: BP 108/68
[2018-02-02 06:49] LABS: CALCIUM 8.9 mg/dL (8.5-10.1); CARBON DIOXIDE 29.8 mmol/L (21-32); CHLORIDE SERUM 101 mmol/L (98-107); CREATININE SERUM 1.1 mg/dL (0.7-1.3); GFR1 > 60 mL/min; GLUCOSE SERUM 88 mg/dL (74-106); POTASSIUM SERUM 3.7 mmol/L (3.5-5.1); SODIUM SERUM 141 mmol/L (136-145)
[2018-02-02 06:57] LABS: PLATELET COUNT 269 x10^3mcL (130-400)
[2018-02-02 06:58] LABS: BASOPHIL % 0 % (0-2); RED CELL DISTRIBUTION WIDTH 21.8 % (11.5-14.5)
[2018-02-02 08:30] VITALS: BP 109/75
[2018-02-02 13:35] VITALS: BP 112/74
[2018-02-02 18:27] VITALS: BP 115/77
[2018-02-02 20:49] VITALS: BP 108/72
[2018-02-03 06:00] VITALS: BP 106/67
[2018-02-03 07:03] LABS: CALCIUM 8.7 mg/dL (8.5-10.1); CARBON DIOXIDE 28.7 mmol/L (21-32); CHLORIDE SERUM 101 mmol/L (98-107); CREATININE SERUM 0.9 mg/dL (0.7-1.3); GFR1 > 60 mL/min; GLUCOSE SERUM 89 mg/dL (74-106); POTASSIUM SERUM 3.2 mmol/L (3.5-5.1); SODIUM SERUM 140 mmol/L (136-145)
[2018-02-03 07:48] LABS: PLATELET COUNT 260 x10^3mcL (130-400)
[2018-02-03 09:17] VITALS: BP 113/72
[2018-02-03 11:47] LABS: RED CELL DISTRIBUTION WIDTH 22.2 % (11.5-14.5)
[2018-02-03 12:32] LABS: CALCIUM 8.3 mg/dL (8.5-10.1); CARBON DIOXIDE 27.5 mmol/L (21-32); CHLORIDE SERUM 102 mmol/L (98-107); CREATININE SERUM 0.8 mg/dL (0.7-1.3); GFR1 > 60 mL/min; GLUCOSE SERUM 104 mg/dL (74-106); POTASSIUM SERUM 3.3 mmol/L (3.5-5.1); SODIUM SERUM 138 mmol/L (136-145)
[2018-02-03 13:03] VITALS: BP 107/63
== END 2018-02-03 15:25 | disposition home or self-care (01) | DRG 194 ==
LOC: ED 23:08 → DU 02-01 01:22
PROVIDERS: Emergency Medicine; Family Medicine; Family Medicine Sports Medicine
DX: I11.0 Hypertensive heart disease with heart failure (principal); I42.0 Dilated cardiomyopathy; Z68.45 Body mass index [BMI] 70 or greater, adult; I08.1 Rheumatic disorders of both mitral and tricuspid valves; E03.9 Hypothyroidism, unspecified; F15.10 Other stimulant abuse, uncomplicated; I50.43 Acute on chronic combined systolic (congestive) and diastolic (congestive) heart failure; E66.9 Obesity, unspecified; Z87.891 Personal history of nicotine dependence; Z91.19 Patient's noncompliance with other medical treatment and regimen; Z79.82 Long term (current) use of aspirin; Z82.49 Family history of ischemic heart disease and other diseases of the circulatory system
CPT/HCPCS: 83880; 84439; J0696; J1940; J2270; J3535; Q0092